=== PATIENT | female | born 1930 | race Caucasian/White ===

== ENCOUNTER → 2017-03-07 | Outpatient (CLI) | payer MEDICARE, OTHER ==
[~2017-03-07] MED LIST: ATOXIMETIN-B1 CAP PO; BACTRIM DS 8001 TA1 PO; CALCIUM 600 W/V1 TAB PO; CALCIUM 600600 M1 PO; COUMADIN5 M2 PO; CYMBALTA60 MG PO; DEXILANT60 MG PO; DIGITEK0.125 MG PO; DOXYCYLINE50 MG PO; KLOR-CON M2020 MEQ PO; KLOR-CON20 MEQ PO; LANOXIN0.125 MG PO; LEVAQUIN750 MG PO; LISINOPRIL AND1 TA1 PO; LISINOPRIL/HCTZ1 TA2 PO; LISINOPRIL20 MG PO; LYRICA75 MG PO; OMEPRAZOLE40 MG PO; THE MEDICINE S400 IU PO; TOPAMAX25 MG PO; TYLENOL W/CODEI1 TA2 PO; VERELAN SR 240240 MG PO; VICODIN1 TAB PO; VITAMIN D31000 I1 PO
== END | disposition home or self-care (01) ==
LOC: CT 03-01 11:00
DX: N28.1 Cyst of kidney, acquired (principal); E27.9 Disorder of adrenal gland, unspecified; Z90.49 Acquired absence of other specified parts of digestive tract; Z90.710 Acquired absence of both cervix and uterus; Z98.890 Other specified postprocedural states

== ENCOUNTER 2017-09-19 11:33 | Inpatient (IN) | payer MEDICARE, OTHER ==
[~2017-09-19] VITALS: Ht 152.4 cm; Wt 95.3 kg
--- NOTE | ~2017-09-19 | PR ---
[place], [place] PROGRESS NOTE [facility]: [id number] UNIT #: [id number] ROOM: 407 DOCTOR: BHAVNA VERMA MD BIRTHDATE: [birth year] DOS: 09/20/2017 SUBJECTIVE: The patient was seen today at her bedside at the [address] for followup of epigastric pain. She is an 87-year-old woman who has a long history of atrial fibrillation. She denies any history of coronary disease. She states that she has had epigastric pain for some time, but states that she has never been told that she has had a heart attack. She does note that it has been quite a while since she has had any heart testing. Since her admission, her troponin levels have been unremarkable. She did have an echocardiogram yesterday, 09/19/2017. I reviewed that; it showed normal left ventricular size with moderate concentric left ventricular hypertrophy, normal left ventricular segmental wall motion and normal systolic function, estimated ejection fraction was at least 70%. She has stage II diastolic relaxation abnormalities. The left atrium appeared severely enlarged. There was mild mitral insufficiency and mild tricuspid insufficiency, but no definite pulmonary hypertension. She does have a small pericardial effusion, which appears to have no hemodynamic consequences. PHYSICAL EXAMINATION: VITAL SIGNS: Today, her pulse is 60 and irregularly irregular. Blood pressure is 153/60. She is afebrile. NECK: Supple. She has no jugular distention. Carotids are full without bruits. LUNGS: Respirations are unlabored. Her chest is clear to auscultation and percussion. HEART: Has an irregularly irregular rhythm without murmurs or gallops. The PMI is not displaced. There is no precordial heave, lift or thrill. ABDOMEN: Soft and normally active. She has no epigastric tenderness or rebound. There are no masses. EXTREMITIES: Showed no edema. Peripheral pulses are easily palpated in the feet. Her monitor does show atrial fibrillation with a controlled ventricular response. IMPRESSION: 1. Epigastric pain. This appears to be noncardiac in origin on clinical grounds. 2. Normal troponin level despite prolonged periods of chest discomfort. 3. Hypertension, which appears to be fairly poorly controlled. The patient does have moderate concentric left ventricular hypertrophy on echocardiography. 4. Atrial fibrillation, which is permanent and appears to be well controlled. 5. Gastroesophageal reflux and hiatal hernia. 6. Hypothyroidism. 7. Obesity. 8. Neuropathy. PLAN: The patient is being considered for further GI evaluation. If she is still in the hospital in the next few days, we might consider a pharmacologic stress test to complete her cardiac workup, but at this point I have a very low [place], [place] PROGRESS NOTE NAME: FRANKLIN NORWOOD UNIT #: [id number] ROOM: 407 DOCTOR: BAYRON ARMIJO,BHAVNA BIRTHDATE: [birth year] suspicion that her heart is the cause of her symptoms. I thank the hospitalist physicians for asking our advice regarding her care. BHAVNA VERMA MD CM:PNTRANS [id number] BHAVNA VERMA MD 09/20/17 564 interface
[2017-09-19 11:33] VITALS: BP 191/88
[2017-09-19] MEDS ORDERED: VERAPAMIL HCL120 M1 PO (12:09)
[2017-09-19] MEDS ORDERED: FEOSOL325 MG PO (12:09)
[2017-09-19] MEDS ORDERED: ASPIRIN81 M1 PO (12:10)
[2017-09-19] MEDS ORDERED: LISINOPRIL40 MG PO (12:10)
[2017-09-19] MEDS ORDERED: POTASSIUM99 M5 PO (12:11)
[2017-09-19] MEDS ORDERED: VITAMIN D31000 UNI1 PO (12:12)
[2017-09-19 12:13] LABS: BASO % 0.4 % (0.0-1.0); EOS # 0.2 10*3/uL (0.0-0.4); EOS % 1.8 % (1.0-4.0); HEMATOCRIT 35.2 % (37.0-47.0); HEMOGLOBIN 10.7 g/dl (12.0-16.0); LYMPH # 1.2 10*3/uL (1.3-4.4); LYMPH % 12.7 % (27.0-41.0); MEAN CELL VOLUME 94.4 fl (81.0-99.0); MEAN CORPUSCULAR HGB 28.7 pg (27.0-31.0); MEAN CORPUSCULAR HGB CONC 30.4 g/dl (33.0-37.0); MEAN PLATELET VOLUME 10.6 fl (9.6-12.3); MONO # 0.8 10*3/uL (0.1-1.0); MONO % 9.1 % (3.0-9.0); NEUT # 6.9 10*3/uL (2.3-7.9); NEUT % 75.5 % (47.0-73.0); PLATELET COUNT AUTOMATED 257 10*3/uL (130-400); RED BLOOD COUNT 3.73 10*6/uL (4.10-5.10); RED CELL DISTRI WIDTH 15.8 % (0-14.5); WHITE BLOOD COUNT 9.1 10*3/uL (4.8-10.8)
[2017-09-19] MEDS ORDERED: B12,B-12,B 12500 MC1 PO (12:13)
[2017-09-19 12:23] LABS: ACT PARTIAL THROMBO TIME 24.5 SECONDS (20.8-31.5)
[2017-09-19 12:29] LABS: ALBUMIN 3.4 gm/dl (3.1-4.5); CREATININE 1.23 mg/dL (0.55-1.02); TOTAL PROTEIN 6.8 gm/dL (6.4-8.2)
[2017-09-19 12:30] LABS: TROPONIN I 0.015 ng/ml (<0.045)
[2017-09-19 12:49] VITALS: BP 159/71
[2017-09-19 14:55] VITALS: BP 178/82
[2017-09-19 15:00] VITALS: BP 170/80
[2017-09-19] MEDS ORDERED: LEVOTHYROXINE50 MCG PO (15:02)
[2017-09-19] MEDS ORDERED: COLACE100 MG PO (15:03)
[2017-09-19] MEDS ORDERED: PRESERVISION A1 EAC1 PO (15:04)
[2017-09-19] MEDS ORDERED: HAIR, SKIN & N1 EACH PO (15:05)
[2017-09-19] MEDS ORDERED: LYRICA75 M1 PO (15:30)
[2017-09-19] MEDS ORDERED: CYMBALTA30 MG PO (15:30)
[2017-09-19 16:00] VITALS: BP 170/80
[2017-09-19 20:00] VITALS: BP 156/73
[2017-09-20] VITALS: BP 150/69
[2017-09-20 06:19] LABS: BASO % 0.4 % (0.0-1.0); EOS # 0.2 10*3/uL (0.0-0.4); EOS % 2.4 % (1.0-4.0); HEMOGLOBIN 9.5 g/dl (12.0-16.0); LYMPH # 1.2 10*3/uL (1.3-4.4); LYMPH % 16.2 % (27.0-41.0); MEAN CELL VOLUME 95.5 fl (81.0-99.0); MEAN CORPUSCULAR HGB 28.4 pg (27.0-31.0); MEAN CORPUSCULAR HGB CONC 29.7 g/dl (33.0-37.0); MEAN PLATELET VOLUME 11.4 fl (9.6-12.3); MONO # 0.8 10*3/uL (0.1-1.0); MONO % 10.8 % (3.0-9.0); NEUT % 69.8 % (47.0-73.0); PLATELET COUNT AUTOMATED 218 10*3/uL (130-400); RED BLOOD COUNT 3.35 10*6/uL (4.10-5.10); RED CELL DISTRI WIDTH 15.7 % (0-14.5); WHITE BLOOD COUNT 7.2 10*3/uL (4.8-10.8)
[2017-09-20 06:37] LABS: ALBUMIN 2.8 gm/dl (3.1-4.5); BUN 17 mg/dl (7-24); CHLORIDE 107 mmol/L (98-107); CHOLESTEROL 109 mg/dL (<200); CREATININE 0.93 mg/dL (0.55-1.02); PHOSPHOROUS 3.3 mg/dL (2.5-4.9); POTASSIUM 3.6 mmol/L (3.5-5.1); SGOT/AST 15 IU/L (3-35); SGPT/ALT 18 U/L (12-78); SODIUM 143 mmol/L (136-145); TRIGLYCERIDES 62 mg/dl (<150); VLDL CHOLESTEROL 12 mg/dL (6-40)
[2017-09-20 06:44] LABS: ALKALINE PHOSPHATASE 71 U/L (45-117); FREE T4 1.08 ng/dl (0.76-1.46); HDL CHOLESTEROL 49 mg/dl (40-60); LDL CHOLESTEROL 48 mg/dL (9-159); TOTAL PROTEIN 5.7 gm/dL (6.4-8.2)
[2017-09-20 07:12] LABS: VITAMIN D, 25-HYDROXY 34.7 ng/mL (30-100)
[2017-09-20 08:00] VITALS: BP 148/76
[2017-09-20 12:00] VITALS: BP 153/60
[2017-09-20 16:00] VITALS: BP 150/62
[2017-09-20 20:00] VITALS: BP 133/50
[2017-09-21] VITALS: BP 151/62
[2017-09-21 06:54] LABS: BASO # 0.1 10*3/uL (0.0-0.1); BASO % 0.6 % (0.0-1.0); EOS # 0.2 10*3/uL (0.0-0.4); EOS % 2.4 % (1.0-4.0); HEMATOCRIT 34.3 % (37.0-47.0); HEMOGLOBIN 10.1 g/dl (12.0-16.0); LYMPH # 1.2 10*3/uL (1.3-4.4); LYMPH % 13.6 % (27.0-41.0); MEAN CELL VOLUME 96.3 fl (81.0-99.0); MEAN CORPUSCULAR HGB 28.4 pg (27.0-31.0); MEAN CORPUSCULAR HGB CONC 29.4 g/dl (33.0-37.0); MEAN PLATELET VOLUME 11.4 fl (9.6-12.3); MONO # 0.8 10*3/uL (0.1-1.0); MONO % 9.6 % (3.0-9.0); NEUT # 6.4 10*3/uL (2.3-7.9); NEUT % 73.5 % (47.0-73.0); PLATELET COUNT AUTOMATED 235 10*3/uL (130-400); RED BLOOD COUNT 3.56 10*6/uL (4.10-5.10); RED CELL DISTRI WIDTH 15.7 % (0-14.5); WHITE BLOOD COUNT 8.7 10*3/uL (4.8-10.8)
[2017-09-21 07:32] LABS: CHLORIDE 107 mmol/L (98-107); POTASSIUM 3.9 mmol/L (3.5-5.1); SODIUM 143 mmol/L (136-145)
[2017-09-21 07:50] LABS: BUN 18 mg/dl (7-24); CREATININE 0.99 mg/dL (0.55-1.02)
[2017-09-21 08:00] VITALS: BP 146/66
[2017-09-21 12:00] VITALS: BP 156/67
[2017-09-21 15:52] VITALS: BP 102/46
[2017-09-21 20:00] VITALS: BP 108/55
[2017-09-22] VITALS: BP 110/55
[2017-09-22 08:00] VITALS: BP 131/71
[2017-09-22 11:58] VITALS: BP 131/71
[2017-09-22] MEDS ORDERED: VITAMIN D31000 UNI1 PO (12:34)
[2017-09-22] MEDS ORDERED: VERAPAMIL HCL120 M1 PO (12:34)
[2017-09-22] MEDS ORDERED: LOSARTAN POTASS50 M1 PO (12:34)
[2017-09-22] MEDS ORDERED: THERA TABLET400 MCG PO (12:34)
[2017-09-22] MEDS ORDERED: FEOSOL325 MG PO (12:34)
[2017-09-22] MEDS ORDERED: CYMBALTA30 MG PO (12:34)
[2017-09-22] MEDS ORDERED: POTASSIUM99 M5 PO (12:34)
[2017-09-22] MEDS ORDERED: LORAZEPAM0.5 MG PO (12:34)
[2017-09-22] MEDS ORDERED: OMEPRAZOLE40 MG PO (12:34)
[2017-09-22] MEDS ORDERED: ASPIRIN81 M1 PO (12:34)
[2017-09-22] MEDS ORDERED: LEVOTHYROXINE50 MCG PO (12:34)
[2017-09-22] MEDS ORDERED: LYRICA75 M1 PO (12:34)
[2017-09-22] MEDS ORDERED: COLACE100 MG PO (12:34)
== END 2017-09-22 15:48 | disposition home or self-care (01) | DRG 880 ==
LOC: ED 11:33 → 4E 13:33 → EDHOLD 13:33 → 4E 13:47
PROVIDERS: Internal Medicine; Nurse Practitioner Family; Registered Nurse
DX: F41.9 Anxiety disorder, unspecified (principal); G62.9 Polyneuropathy, unspecified; I31.3 Pericardial effusion (noninflammatory); I08.1 Rheumatic disorders of both mitral and tricuspid valves; Z68.41 Body mass index [BMI] 40.0-44.9, adult; I48.1 Persistent atrial fibrillation; D50.9 Iron deficiency anemia, unspecified; E03.9 Hypothyroidism, unspecified; I13.10 Hypertensive heart and chronic kidney disease without heart failure, with stage 1 through stage 4 chronic kidney disease, or unspecified chronic kidney disease; N18.3 Chronic kidney disease, stage 3 (moderate); K21.9 Gastro-esophageal reflux disease without esophagitis; K44.9 Diaphragmatic hernia without obstruction or gangrene; E66.09 Other obesity due to excess calories; Z96.653 Presence of artificial knee joint, bilateral; R10.13 Epigastric pain; F41.0 Panic disorder [episodic paroxysmal anxiety]; Z66 Do not resuscitate; Z51.5 Encounter for palliative care; Z90.710 Acquired absence of both cervix and uterus; Z90.89 Acquired absence of other organs; Z90.49 Acquired absence of other specified parts of digestive tract; Z98.49 Cataract extraction status, unspecified eye; Z82.49 Family history of ischemic heart disease and other diseases of the circulatory system; Z83.3 Family history of diabetes mellitus; Z83.6 Family history of other diseases of the respiratory system; Z79.82 Long term (current) use of aspirin; Z79.899 Other long term (current) drug therapy; Z87.11 Personal history of peptic ulcer disease

== ENCOUNTER → 2017-10-07 | Outpatient (CLI) | payer MEDICARE, OTHER ==
[~2017-10-07] MED LIST changes: +ASPIRIN81 M1 PO; +B12,B-12,B 12500 MC1 PO; +COLACE100 MG PO; +CYMBALTA30 MG PO; +FEOSOL325 MG PO; +HAIR, SKIN & N1 EACH PO; +LEVOTHYROXINE50 MCG PO; +LISINOPRIL40 MG PO; +LORAZEPAM0.5 MG PO; +LOSARTAN POTASS50 M1 PO; +LYRICA75 M1 PO; +POTASSIUM99 M5 PO; +PRESERVISION A1 EAC1 PO; +THERA TABLET400 MCG PO; +VERAPAMIL HCL120 M1 PO; +VITAMIN D31000 UNI1 PO
== END | disposition home or self-care (01) ==
LOC: RESCLI 03:26
DX: Z09 Encounter for follow-up examination after completed treatment for conditions other than malignant neoplasm (principal); I48.2 Chronic atrial fibrillation; K21.9 Gastro-esophageal reflux disease without esophagitis; K44.9 Diaphragmatic hernia without obstruction or gangrene; I10 Essential (primary) hypertension; E03.9 Hypothyroidism, unspecified; G62.9 Polyneuropathy, unspecified; D50.9 Iron deficiency anemia, unspecified; E66.01 Morbid (severe) obesity due to excess calories; E43 Unspecified severe protein-calorie malnutrition; Z68.41 Body mass index [BMI] 40.0-44.9, adult

== ENCOUNTER 2017-10-31 18:27 | Inpatient (IN) | payer MEDICARE, OTHER ==
[~2017-10-31] VITALS: Ht 152.4 cm; Wt 95.3 kg
--- NOTE | ~2017-10-31 | O ---
[place], [place] OPERATIVE NOTE NAME: FRANKLIN NORWOOD UNIT #: [id number] ROOM: 408 DOCTOR: HERO MORALES MD BIRTHDATE: [birth year] DOS: 11/03/2017 GASTROENDOSCOPIC REPORT INDICATIONS: The patient has presented with anemia, multi-medical issues that are being addressed as well as epigastric distress, periodic rectal bleed. PROCEDURE: Today's procedure part of investigation is panendoscopy and colonoscopy. PREMEDICATION: Versed and Diprivan. SCOPE: Olympus forward-viewing gastroscope Q10 video. REPORT: After putting the patient in left lateral position and application of lubricant to the scope, the scope was introduced. Thereafter, under direct visualization, advanced through the length of the esophagus without difficulty. Small hiatal hernia was noticed. Gastric pouch was entered. Gastritis seen. Antral biopsy obtained. Duodenal bulb, second and third part within normal limits. The patient was gradually extubated, tolerated procedure well. IMPRESSION: Small hiatal hernia, gastritis, status post biopsy. PLAN AND DISCUSSION: Omeprazole 20 mg 1 every day, would suffice management of upper GI findings. PLAN AND DISCUSSION: I am going to proceed with colonoscopy. INDICATIONS: The patient has presented with rectal bleed. PROCEDURE: Today's procedure part of investigation is colonoscopy. PREMEDICATION: Versed and Diprivan. SCOPE: Olympus folding colonoscope 10L video. REPORT: After putting the patient in left lateral position and application of lubricant to rectal pouch and digital examination, scope was introduced; thereafter, under direct visualization, I advanced the length of colon without difficulty. Tortuosity and redundancy of colon was noticed. Base of the cecum explored, appendiceal orifice identified, and ileocecal valve was defined, photographed. The scope was gradually withdrawn from ascending, transverse, descending colon. GI reflection of the scope in the rectum demonstrates benign anatomy. Air was suctioned out. The patient was extubated, tolerated procedure well. IMPRESSION: Diverticulosis, redundant colon, tortuous colon. PLAN AND DISCUSSION: Regular diet and supportive therapy of periodic rectal [place], [place] OPERATIVE NOTE NAME: FRANKLIN NORWOOD UNIT #: [id number] ROOM: 408 DOCTOR: HERO MORALES MD BIRTHDATE: [birth year] bleed with a hemorrhoid Preparation-H suppositories 1 p.r.n. HERO MORALES MD CM:OPRECORD:OPERATIVE NOTE [id number] HERO MORALES MD 11/03/17 1426 interface
--- NOTE | ~2017-10-31 | CON ---
[place], [place] REPORT OF CONSULTATION NAME: FRANKLIN NORWOOD UNIT #: [id number] ROOM: 408 DOCTOR: ANDREW ARMIJOSHENALORENZA BIRTHDATE: [birth year] DOS: 11/03/2017 GASTROENDOSCOPIC CONSULTATION HISTORY OF PRESENT ILLNESS: An 87-year-old patient who presented with anemia, epigastric distress, nonspecific abdominal pain, guaiac positivity, undergoing investigation. The patient had lab results, urinalysis 1+ bacteria. Lactic acid normal. CBC: H and H of 8 and 30. Comprehensive metabolic panel, electrolyte balance, liver function test normal. CT scan of the abdomen and pelvis, no acute inflammatory process, inferior anterior abdominal wall hernia, right midline, the same as prior herniation of the past. CBC differential slight drop in H and H was again noticed to 7.9 and 27.9, hemoglobin A1c less than 3.5. CBC and labs and records were reassessed, transfusion to 9.7 and 33.8. PAST MEDICAL HISTORY: Associated with gastroesophageal reflux, hiatal hernia, hypertension, hypothyroidism, anemia, iron deficiency type, and chronic renal insufficiency. PAST SURGICAL HISTORY: Knee prosthesis, hysterectomy, appendectomy, cataract, cholecystectomy, endoscopies, and kyphoplasty. SOCIAL HISTORY: Nonsmoker, nonalcohol consumer. FAMILY HISTORY: Noncontributory. ALLERGIES: To no known medications. MEDICATIONS: Medication list has been reviewed. The patient has been on aspirin and iron supplementation and PPI therapy and others. REVIEW OF SYSTEMS: HEENT: Denies double vision, blurred vision. RESPIRATORY: Denies acute shortness of breath. CARDIOVASCULAR: Denies acute chest pain. DIGESTIVE SYSTEM: Epigastric pain, nonspecific, however. No gross bleeding. PHYSICAL EXAMINATION: VITAL SIGNS: Stable. HEENT: Head normocephalic, nontraumatic. Mouth and buccal mucosa benign. NECK: Supple. No thyromegaly, no cervical lymphadenopathy. CHEST: Symmetric anatomy, decreased air entry in general. No rhonchi, no wheezes. HEART: Normal sinus rhythm, no gallop, no murmur. ABDOMEN: Soft. No hepato-organomegaly. Bowel sounds present. No pulsatile mass. Obese. Scars of surgery on abdomen was noticed. No pulsatile mass. EXTREMITIES: 1+ pedal edema. NEUROLOGIC: Appears to be fully alert, oriented to time, place, person. IMPRESSION: Iron deficiency anemia on aspirin and iron supplementation. [place], [place] REPORT OF CONSULTATION NAME: FRANKLIN NORWOOD UNIT #: [id number] ROOM: 408 DOCTOR: HERO MORALES MD BIRTHDATE: [birth year] Hypokalemia, status post therapy, obesity, bleeding hemorrhoids, atrial fibrillation, history of gastroesophageal reflux, history of hiatal hernia, and renal insufficiency all has been recognized. OTHER ADJUNCTIVE DIAGNOSES: As outlined above. PLAN AND DISCUSSION: We are going to proceed with the EGD and colonoscopic, I have already done. Thank you very much indeed. HERO MORALES MD CM:CONSTR:REPORT OF CONSULTATION 1307 11/04/17 0023 interface
[2017-10-31 18:38] VITALS: BP 156/84
[2017-10-31 18:58] LABS: BILIRUBIN NEGATIVE (NEGATIVE); BLOOD NEGATIVE (NEGATIVE); CLARITY SL CLOUDY (CLEAR); COLOR YELLOW (YELLOW); GLUCOSE NEGATIVE (NEGATIVE); KETONE NEGATIVE (NEGATIVE); LEUKO ESTERASE 2+ (NEGATIVE); NITRITE NEGATIVE (NEGATIVE); PH 5.5 (5.0-9.0); UROBILINOGEN 0.2 E.U./dl (0.2-1.0)
[2017-10-31 19:07] LABS: BACTERIA 1+
[2017-10-31 19:08] LABS: EPITHELIAL CELLS 31-40; WBC 51-100 wbc/hpf (0-5)
[2017-10-31 19:34] VITALS: BP 144/82
[2017-10-31 19:37] LABS: BASO % 0.4 % (0.0-1.0); EOS # 0.1 10*3/uL (0.0-0.4); EOS % 1.5 % (1.0-4.0); HEMATOCRIT 30.1 % (37.0-47.0); HEMOGLOBIN 8.9 g/dl (12.0-16.0); LYMPH # 1.1 10*3/uL (1.3-4.4); LYMPH % 12.9 % (27.0-41.0); MEAN CELL VOLUME 98.7 fl (81.0-99.0); MEAN CORPUSCULAR HGB 29.2 pg (27.0-31.0); MEAN CORPUSCULAR HGB CONC 29.6 g/dl (33.0-37.0); MONO # 0.8 10*3/uL (0.1-1.0); MONO % 9.2 % (3.0-9.0); NEUT # 6.2 10*3/uL (2.3-7.9); NEUT % 75.5 % (47.0-73.0); PLATELET COUNT AUTOMATED 279 10*3/uL (130-400); RED BLOOD COUNT 3.05 10*6/uL (4.10-5.10); RED CELL DISTRI WIDTH 14.9 % (0-14.5); WHITE BLOOD COUNT 8.2 10*3/uL (4.8-10.8)
[2017-10-31 19:52] LABS: ALBUMIN 3.1 gm/dl (3.1-4.5); ALKALINE PHOSPHATASE 77 U/L (45-117); BUN 13 mg/dl (7-24); CHLORIDE 108 mmol/L (98-107); CREATININE 0.91 mg/dL (0.55-1.02); LIPASE 124 U/L (73-393); POTASSIUM 3.7 mmol/L (3.5-5.1); SGOT/AST 14 IU/L (3-35); SGPT/ALT 17 U/L (12-78); SODIUM 143 mmol/L (136-145); TOTAL PROTEIN 6.2 gm/dL (6.4-8.2)
[2017-10-31 20:35] VITALS: BP 132/80
[2017-10-31 21:32] VITALS: BP 128/80
[2017-10-31 23:40] VITALS: BP 157/84
[2017-11-01] MEDS ORDERED: DOXEPIN50 MG PO (00:14)
[2017-11-01] MEDS ORDERED: LYRICA50 M1 PO (00:15)
[2017-11-01 07:19] LABS: BASO % 0.4 % (0.0-1.0); EOS # 0.2 10*3/uL (0.0-0.4); EOS % 2.7 % (1.0-4.0); HEMATOCRIT 27.9 % (37.0-47.0); HEMOGLOBIN 7.9 g/dl (12.0-16.0); LYMPH # 1.4 10*3/uL (1.3-4.4); LYMPH % 20.2 % (27.0-41.0); MEAN CELL VOLUME 99.6 fl (81.0-99.0); MEAN CORPUSCULAR HGB 28.2 pg (27.0-31.0); MEAN CORPUSCULAR HGB CONC 28.3 g/dl (33.0-37.0); MONO # 0.7 10*3/uL (0.1-1.0); NEUT # 4.4 10*3/uL (2.3-7.9); NEUT % 65.4 % (47.0-73.0); PLATELET COUNT AUTOMATED 234 10*3/uL (130-400); RED CELL DISTRI WIDTH 14.7 % (0-14.5); WHITE BLOOD COUNT 6.7 10*3/uL (4.8-10.8)
[2017-11-01 07:48] LABS: BUN 11 mg/dl (7-24); CHLORIDE 109 mmol/L (98-107); CHOLESTEROL 106 mg/dL (<200); CREATININE 0.91 mg/dL (0.55-1.02); FREE T4 1.11 ng/dl (0.76-1.46); HDL CHOLESTEROL 42 mg/dl (40-60); IRON 21 ug/dL (50-170); LDL CHOLESTEROL 53 mg/dL (9-159); PHOSPHOROUS 3.2 mg/dL (2.5-4.9); POTASSIUM 3.8 mmol/L (3.5-5.1); SODIUM 145 mmol/L (136-145); TOTAL IRON BINDING CAPACITY 282 ug/dl (250-450); TRIGLYCERIDES 54 mg/dl (<150); VLDL CHOLESTEROL 11 mg/dL (6-40)
[2017-11-01 08:00] VITALS: BP 153/67
[2017-11-01 08:29] LABS: FERRITIN 24.6 ng/mL (10.0-291.0); VITAMIN D, 25-HYDROXY 27.7 ng/mL (30-100)
[2017-11-01 12:00] VITALS: BP 148/63
[2017-11-01 16:00] VITALS: BP 155/72
[2017-11-01 20:00] VITALS: BP 152/50
[2017-11-02] VITALS: BP 130/63
[2017-11-02 05:53] LABS: BASO % 0.7 % (0.0-1.0); EOS # 0.2 10*3/uL (0.0-0.4); EOS % 2.8 % (1.0-4.0); HEMATOCRIT 29.5 % (37.0-47.0); HEMOGLOBIN 8.5 g/dl (12.0-16.0); LYMPH # 1.1 10*3/uL (1.3-4.4); LYMPH % 18.1 % (27.0-41.0); MEAN CELL VOLUME 100.3 fl (81.0-99.0); MEAN CORPUSCULAR HGB 28.9 pg (27.0-31.0); MEAN CORPUSCULAR HGB CONC 28.8 g/dl (33.0-37.0); MEAN PLATELET VOLUME 11.9 fl (9.6-12.3); MONO # 0.7 10*3/uL (0.1-1.0); MONO % 11.8 % (3.0-9.0); NEUT % 66.3 % (47.0-73.0); PLATELET COUNT AUTOMATED 192 10*3/uL (130-400); RED BLOOD COUNT 2.94 10*6/uL (4.10-5.10); RED CELL DISTRI WIDTH 14.6 % (0-14.5)
[2017-11-02 06:03] LABS: BUN 9 mg/dl (7-24); CHLORIDE 111 mmol/L (98-107); CREATININE 0.89 mg/dL (0.55-1.02); POTASSIUM 3.6 mmol/L (3.5-5.1); SODIUM 145 mmol/L (136-145)
[2017-11-02 08:00] VITALS: BP 145/79
[2017-11-02 12:00] VITALS: BP 119/50
[2017-11-02 16:00] VITALS: BP 120/50
[2017-11-02 20:00] VITALS: BP 160/78
[2017-11-03] VITALS (9 sets, daily range): BP systolic 143–202; BP diastolic 50–91
[2017-11-03 06:42] LABS: BASO % 0.6 % (0.0-1.0); EOS # 0.2 10*3/uL (0.0-0.4); EOS % 3.3 % (1.0-4.0); HEMATOCRIT 33.8 % (37.0-47.0); HEMOGLOBIN 9.7 g/dl (12.0-16.0); LYMPH # 1.2 10*3/uL (1.3-4.4); LYMPH % 18.1 % (27.0-41.0); MEAN CELL VOLUME 99.4 fl (81.0-99.0); MEAN CORPUSCULAR HGB 28.5 pg (27.0-31.0); MEAN CORPUSCULAR HGB CONC 28.7 g/dl (33.0-37.0); MONO # 0.8 10*3/uL (0.1-1.0); MONO % 12.1 % (3.0-9.0); NEUT # 4.4 10*3/uL (2.3-7.9); NEUT % 65.3 % (47.0-73.0); RED CELL DISTRI WIDTH 14.5 % (0-14.5); WHITE BLOOD COUNT 6.7 10*3/uL (4.8-10.8)
[2017-11-03 06:45] LABS: PLATELET COUNT AUTOMATED 292 10*3/uL (130-400)
[2017-11-03 06:52] LABS: BUN 10 mg/dl (7-24); CHLORIDE 108 mmol/L (98-107); CREATININE 1.05 mg/dL (0.55-1.02); POTASSIUM 2.9 mmol/L (3.5-5.1); SODIUM 145 mmol/L (136-145)
[2017-11-04] VITALS: BP 101/70
[2017-11-04 04:00] VITALS: BP 157/54
[2017-11-04 06:19] LABS: BASO % 0.3 % (0.0-1.0); EOS # 0.2 10*3/uL (0.0-0.4); EOS % 2.3 % (1.0-4.0); HEMOGLOBIN 8.7 g/dl (12.0-16.0); LYMPH % 14.7 % (27.0-41.0); MEAN CELL VOLUME 96.7 fl (81.0-99.0); MEAN PLATELET VOLUME 10.6 fl (9.6-12.3); MONO # 0.9 10*3/uL (0.1-1.0); MONO % 12.2 % (3.0-9.0); NEUT # 4.9 10*3/uL (2.3-7.9); NEUT % 70.1 % (47.0-73.0); PLATELET COUNT AUTOMATED 242 10*3/uL (130-400); RED CELL DISTRI WIDTH 14.1 % (0-14.5)
[2017-11-04 06:40] LABS: BUN 7 mg/dl (7-24); CHLORIDE 110 mmol/L (98-107); CREATININE 0.85 mg/dL (0.55-1.02); POTASSIUM 3.3 mmol/L (3.5-5.1); SODIUM 146 mmol/L (136-145)
[2017-11-04 08:00] VITALS: BP 155/62
[2017-11-04 12:00] VITALS: BP 137/58
== END 2017-11-04 15:15 | disposition home or self-care (01) | DRG 394 ==
LOC: ED 18:27 → 4E 22:43 → EDHOLD 22:43 → 4E 23:06
PROVIDERS: Internal Medicine; Physician Assistant; Student in an Organized Health Care Education/Training Program
PROC: 0DJD8ZZ Inspection of Lower Intestinal Tract, Via Natural or Artificial Opening Endoscopic (ICD-10-PCS; principal; 2017-11-03)
PROC: 0DB68ZX Excision of Stomach, Via Natural or Artificial Opening Endoscopic, Diagnostic (ICD-10-PCS; principal; 2017-11-03)
DX: K64.9 Unspecified hemorrhoids (principal); E44.0 Moderate protein-calorie malnutrition; E87.8 Other disorders of electrolyte and fluid balance, not elsewhere classified; G62.9 Polyneuropathy, unspecified; E66.01 Morbid (severe) obesity due to excess calories; D62 Acute posthemorrhagic anemia; I48.0 Paroxysmal atrial fibrillation; D50.9 Iron deficiency anemia, unspecified; N39.0 Urinary tract infection, site not specified; Z68.41 Body mass index [BMI] 40.0-44.9, adult; K29.70 Gastritis, unspecified, without bleeding; K57.30 Diverticulosis of large intestine without perforation or abscess without bleeding; K21.9 Gastro-esophageal reflux disease without esophagitis; K44.9 Diaphragmatic hernia without obstruction or gangrene; R19.5 Other fecal abnormalities; N18.3 Chronic kidney disease, stage 3 (moderate); E03.9 Hypothyroidism, unspecified; I12.9 Hypertensive chronic kidney disease with stage 1 through stage 4 chronic kidney disease, or unspecified chronic kidney disease; D72.810 Lymphocytopenia; Z96.659 Presence of unspecified artificial knee joint; E87.6 Hypokalemia; K63.89 Other specified diseases of intestine; Z90.710 Acquired absence of both cervix and uterus; Z90.49 Acquired absence of other specified parts of digestive tract; Z82.49 Family history of ischemic heart disease and other diseases of the circulatory system; Z83.6 Family history of other diseases of the respiratory system; Z79.82 Long term (current) use of aspirin; Z83.3 Family history of diabetes mellitus; Z79.899 Other long term (current) drug therapy; Z98.49 Cataract extraction status, unspecified eye

== ENCOUNTER 2017-11-19 11:43 | Emergency (ER) | payer MEDICARE, OTHER ==
[~2017-11-19] VITALS: Ht 152.4 cm; Wt 95.7 kg
[~2017-11-19 11:43] MED LIST changes: +DOXEPIN50 MG PO; +LYRICA50 M1 PO
[2017-11-19 12:31] LABS: BASO % 0.4 % (0.0-1.0); EOS # 0.2 10*3/uL (0.0-0.4); HEMATOCRIT 32.6 % (37.0-47.0); HEMOGLOBIN 9.4 g/dl (12.0-16.0); LYMPH # 1.2 10*3/uL (1.3-4.4); LYMPH % 16.3 % (27.0-41.0); MEAN CELL VOLUME 93.7 fl (81.0-99.0); MEAN CORPUSCULAR HGB CONC 28.8 g/dl (33.0-37.0); MEAN PLATELET VOLUME 10.6 fl (9.6-12.3); MONO # 0.7 10*3/uL (0.1-1.0); MONO % 9.6 % (3.0-9.0); NEUT # 5.1 10*3/uL (2.3-7.9); PLATELET COUNT AUTOMATED 270 10*3/uL (130-400); RED BLOOD COUNT 3.48 10*6/uL (4.10-5.10); RED CELL DISTRI WIDTH 15.8 % (0-14.5); WHITE BLOOD COUNT 7.3 10*3/uL (4.8-10.8)
[2017-11-19 12:48] LABS: ALBUMIN 3.3 gm/dl (3.1-4.5); ALKALINE PHOSPHATASE 92 U/L (45-117); BUN 18 mg/dl (7-24); CHLORIDE 115 mmol/L (98-107); CREATININE 1.05 mg/dL (0.55-1.02); LIPASE 162 U/L (73-393); POTASSIUM 3.9 mmol/L (3.5-5.1); SGOT/AST 17 IU/L (3-35); SGPT/ALT 21 U/L (12-78); SODIUM 153 mmol/L (136-145); TOTAL PROTEIN 6.7 gm/dL (6.4-8.2)
[2017-11-19 12:53] LABS: TROPONIN I < 0.015 ng/ml (<0.045)
== END 2017-11-19 14:33 | disposition home or self-care (01) ==
LOC: ED 11:43
PROVIDERS: Physician Assistant
DX: R06.00 Dyspnea, unspecified (principal); Z90.710 Acquired absence of both cervix and uterus; Z98.890 Other specified postprocedural states; Z90.49 Acquired absence of other specified parts of digestive tract; Z79.899 Other long term (current) drug therapy; Z79.82 Long term (current) use of aspirin

== ENCOUNTER → 2018-01-12 | Outpatient (CLI) | payer MEDICARE, OTHER ==
[~2018-01-12] MED LIST changes: +ALAVERT D-12 A1 EACH PO; +HYDR25T PO; +LOSARTAN POTAS100 M1 PO; +VISTARIL25 MG PO
== END | disposition home or self-care (01) ==
LOC: RESCLI 04:58
PROVIDERS: Hospitalist
DX: I10 Essential (primary) hypertension (principal); I48.2 Chronic atrial fibrillation; K21.9 Gastro-esophageal reflux disease without esophagitis; E03.9 Hypothyroidism, unspecified; E66.01 Morbid (severe) obesity due to excess calories; E55.9 Vitamin D deficiency, unspecified; F41.9 Anxiety disorder, unspecified; M19.071 Primary osteoarthritis, right ankle and foot; M19.072 Primary osteoarthritis, left ankle and foot; Z91.09 Other allergy status, other than to drugs and biological substances

== ENCOUNTER 2018-01-21 12:48 | Inpatient (IN) | payer MEDICARE, OTHER ==
[2018-01-21] VITALS (7 sets, daily range): BP systolic 150–204; BP diastolic 59–104
[~2018-01-21] VITALS: Ht 152.4 cm; Wt 90.8 kg
--- NOTE | ~2018-01-21 | PR ---
[place], [place] PROGRESS NOTE NAME: FRANKLIN NORWOOD UNIT #: [id number] ROOM: 404 DOCTOR: BHAVNA VERMA MD BIRTHDATE: [birth year] DOS: 01/23/2018 CARDIOLOGY PROGRESS NOTE SUBJECTIVE: The patient was seen today January 23, 2018, at her bedside with her daughter in attendance. She is an 87-year-old woman who has a history of atrial fibrillation. She presented to the hospital on this occasion with hypertensive urgency. We have been adjusting her medications for better control. It was noted that she did have atrial fibrillation, but was not on anticoagulants. Today, I had a long discussion with the patient and her daughter regarding her risk for stroke. Her CHADS-VASc score is 6 indicating a 10% yearly risk of stroke without anticoagulation. She has therefore agreed to start Eliquis. Her daughter is already on the drug and is receptive to the patient being on it as well. The patient does have a history of undiagnosed source for GI blood loss. She has had multiple endoscopies in the past, but seems to have stabilized recently. I am hoping that she will tolerate the Eliquis without any significant blood loss, but I told the family that this was certainly a possibility. PHYSICAL EXAMINATION: VITAL SIGNS: Today, her pulse is 66 and irregularly irregular. Blood pressure is 158/82. She is afebrile. NECK: Supple. She has no jugular distention. Carotids are full. LUNGS: Respirations are unlabored. Her chest is clear. HEART: Has an irregularly irregular rhythm without murmurs or gallops. ABDOMEN: Benign. EXTREMITIES: Showed 1+ edema bilaterally. IMPRESSION: 1. Permanent atrial fibrillation. 2. Hypertensive emergency. 3. History of gastrointestinal blood loss. Etiology never determined despite multiple attempts. 4. CHADS-VASc score of 6 predicting a 10% yearly risk of stroke without anticoagulation. 5. Degenerative joint disease. PLAN: We will start a thiazide diuretic to better control her blood pressure. I also started her today on Eliquis since she and her daughter have agreed to proceed. We will stop her enoxaparin and aspirin to accommodate this. I thank the hospitalist physicians for asking our advice regarding her care. [place], [place] PROGRESS NOTE NAME: FRANKLIN NORWOOD UNIT #: [id number] ROOM: 404 DOCTOR: BHAVNA VERMA MD BIRTHDATE: [birth year] BHAVNA VERMA MD CM:PNTRANS [id number] BHAVNA VERMA MD 01/24/18 0029 interface
--- NOTE | ~2018-01-21 | CON ---
[place], [place] REPORT OF CONSULTATION NAME: FRANKLIN NORWOOD UNIT #: [id number] ROOM: 404 DOCTOR: BHAVNA VERMA MD BIRTHDATE: [birth year] DOS: 01/22/2018 CARDIOLOGY CONSULTATION REASON FOR CONSULTATION: Atrial fibrillation and hypertension. HISTORY OF PRESENT ILLNESS: The patient is an 87-year-old woman who typically receives her medical care at the [facility] in [place]. Lately, she has been going to the [facility] because of the cost of her medications and convenience. She was noted to have severely elevated blood pressure 2 weeks ago. This has remained elevated. She has noticed some headache and her blood pressure has been 200/100. She was therefore admitted to the hospital for further management. The patient does have a long history of permanent atrial fibrillation. She has not had a clinical stroke, but her CAT scan does show right frontal encephalomalacia consistent with a previous stroke. She has no focal weakness. The patient has had problems with gastrointestinal blood loss. She states that for quite some time a few years ago, she had received transfusions every other week. She has had numerous upper and lower endoscopies as well as a camera endoscopy, but no cause was ever found. Lately, her blood counts have been more stable. She states that she was on warfarin for a time, but did not tolerate it because of blood loss. Lately, she is on aspirin only. PAST MEDICAL HISTORY: Includes: 1. Essential hypertension. 2. Permanent atrial fibrillation. 3. GI blood loss. Cause not discovered despite multiple endoscopies. 4. Hypothyroidism. 5. Severe obesity due to excess calories. 6. Multiple abdominal surgeries including cholecystectomy, hemorrhoidectomy, kidney surgery and appendectomy as well as hysterectomy. 7. Status post right knee replacement and kyphoplasty. CURRENT MEDICATIONS: Include aspirin 81 mg daily, calcium with D 1 tablet b.i.d., vitamin D 1000 units daily, vitamin B12 1000 mcg p.o. daily, docusate 100 mg b.i.d., doxepin 50 mg at bedtime, duloxetine 30 mg daily, ferrous sulfate 325 mg b.i.d., hydroxyzine 25 mg at bedtime, levothyroxine 50 mcg daily, loratadine with pseudoephedrine p.r.n. allergies, losartan 50 mg daily, multivitamin with folic acid daily, omeprazole 20 mg daily, potassium 99 mg daily, Lyrica 50 mg at bedtime, verapamil 120 mg b.i.d. and PreserVision one tablet b.i.d. ALLERGIES: The patient has no known drug allergies. FAMILY HISTORY: Negative for early coronary artery disease. Her father of COPD at age 71 and mother of diabetes at age 76. REVIEW OF SYSTEMS: The patient denies diplopia or loss of vision. She denies [place], [place] REPORT OF CONSULTATION NAME: FRANKLIN NORWOOD UNIT #: [id number] ROOM: [facility] DOCTOR: BHAVNA VERMA MD BIRTHDATE: [birth year] focal weakness, but she does have chronic leg weakness and back pain. She walks with a walker. She does have peripheral neuropathy. She denies fevers, chills, sweats or recent weight gain. She denies nausea or vomiting. She denies palpitations or lightheadedness and denies syncope. She does have occasional chest heaviness when she pushes herself hard, but denies any resting pain or pain with normal activities. She denies hemoptysis or hematemesis. She denies change in bowel or bladder habits. She does have occasional bleeding hemorrhoids. She denies any blood in the urine. She denies any peripheral edema or skin rashes, but she does bruise easily. Remainder of the review of systems is negative except as noted above. SOCIAL HISTORY: The patient is a . She cared for her with Alzheimer's until his 10 years ago and cared for her Down syndrome son until he a few years ago as well. She now lives alone. She does not smoke or consume alcohol. PHYSICAL EXAMINATION: GENERAL: The patient is an elderly white female who is awake, alert and oriented. VITAL SIGNS: Pulse is 57 and irregularly irregular. Blood pressure is 129/59. She is afebrile. She weighs 90.8 kilograms. HEENT: Normocephalic and atraumatic. Extraocular muscles are intact. Sclerae are clear. Pupils equal, round and react to light. The oral mucosa is moist. Tongue is midline. NECK: Supple. She has no jugular distention. Carotids are full. I heard no bruits. She had no neck or supraclavicular masses and no thyromegaly. LUNGS: Respirations are unlabored. Her chest is clear to auscultation and percussion. She has no presacral edema or chest wall tenderness. CARDIOVASCULAR: Heart has an irregularly irregular rhythm without murmurs or gallops. PMI is not displaced. There is no precordial heave, lift or thrill. ABDOMEN: Soft and normally active without masses, organomegaly or bruits. EXTREMITIES: Showed no edema. Peripheral pulses are easily palpated bilaterally. LABORATORY DATA: I reviewed her electrocardiogram, which showed atrial fibrillation with poor precordial R-wave progression and nonspecific T-wave abnormalities. IMPRESSIONS: 1. Permanent atrial fibrillation. 2. History of gastrointestinal blood loss, etiology never determined despite multiple attempts. 3. Essential hypertension, lately out of control. 4. CHADS-VASc score equals 6 predicting a 10% yearly risk of stroke. 5. Degenerative joint disease. PLAN: I did spend quite a bit of time discussing with the patient the risk of stroke in her situation. I think that her risk of stroke is high, but her risk of bleeding is also high. I think it comes down to informing the patient of the options and allowing her to decide. She wants to discuss this with her daughter [place], [place] REPORT OF CONSULTATION NAME: FRANKLIN NORWOOD UNIT #: [id number] ROOM: 404 DOCTOR: BHAVNA VERMA MD BIRTHDATE: [birth year] who helps her with her medications. For now, we will make no changes on her anticoagulation. As regards to her blood pressure, she does take a sinus medication with pseudoephedrine. This should be completely avoided. If need be, we could add a thiazide diuretic to her regimen, but at the present time, her blood pressure does seem to be better. We will continue to observe the patient with her primary physicians and discuss her options with her and her daughter when she is available. I thank the hospitalist physicians for asking our advice regarding her care. BHAVNA VERMA MD CM:CONSTR:REPORT OF CONSULTATION 1236 01/23/18 0029 interface
[~2018-01-21 12:48] MED LIST changes: -ALAVERT D-12 A1 EACH PO; -HYDR25T PO; -LOSARTAN POTAS100 M1 PO; -VISTARIL25 MG PO
[2018-01-21 13:34] LABS: BASO % 0.5 % (0.0-1.0); EOS # 0.2 10*3/uL (0.0-0.4); EOS % 2.6 % (1.0-4.0); HEMATOCRIT 42.4 % (37.0-47.0); HEMOGLOBIN 12.5 g/dl (12.0-16.0); LYMPH # 1.3 10*3/uL (1.3-4.4); MEAN CORPUSCULAR HGB 27.1 pg (27.0-31.0); MEAN CORPUSCULAR HGB CONC 29.5 g/dl (33.0-37.0); MEAN PLATELET VOLUME 11.2 fl (9.6-12.3); MONO # 0.7 10*3/uL (0.1-1.0); MONO % 9.2 % (3.0-9.0); NEUT # 5.6 10*3/uL (2.3-7.9); NEUT % 71.2 % (47.0-73.0); PLATELET COUNT AUTOMATED 228 10*3/uL (130-400); RED BLOOD COUNT 4.61 10*6/uL (4.10-5.10); RED CELL DISTRI WIDTH 15.9 % (0-14.5); WHITE BLOOD COUNT 7.8 10*3/uL (4.8-10.8)
[2018-01-21 13:43] LABS: ACT PARTIAL THROMBO TIME 25.5 SECONDS (20.8-31.5)
[2018-01-21 13:49] LABS: ALBUMIN 3.5 gm/dl (3.1-4.5); ALKALINE PHOSPHATASE 100 U/L (45-117); BUN 16 mg/dl (7-24); CHLORIDE 106 mmol/L (98-107); CREATININE 0.93 mg/dL (0.55-1.02); LIPASE 141 U/L (73-393); POTASSIUM 3.8 mmol/L (3.5-5.1); SGOT/AST 19 IU/L (3-35); SGPT/ALT 26 U/L (12-78); SODIUM 141 mmol/L (136-145); TOTAL PROTEIN 6.9 gm/dL (6.4-8.2)
[2018-01-21 13:50] LABS: TROPONIN I < 0.015 ng/ml (<0.045)
[2018-01-21 14:25] LABS: BILIRUBIN NEGATIVE (NEGATIVE); BLOOD NEGATIVE (NEGATIVE); CLARITY CLEAR (CLEAR); COLOR YELLOW (YELLOW); GLUCOSE NEGATIVE (NEGATIVE); KETONE NEGATIVE (NEGATIVE); LEUKO ESTERASE 1+ (NEGATIVE); NITRITE NEGATIVE (NEGATIVE); SPECIFIC GRAVITY <= 1.005 (1.005-1.030); UROBILINOGEN 0.2 E.U./dl (0.2-1.0)
[2018-01-21 14:39] LABS: BACTERIA TRACE
[2018-01-21 14:40] LABS: WBC 51-100 wbc/hpf (0-5)
[2018-01-21] MEDS ORDERED: VISTARIL25 MG PO (22:03)
[2018-01-22] VITALS: BP 184/100
[2018-01-22 01:20] VITALS: BP 162/88
[2018-01-22] MEDS ORDERED: ALAVERT D-12 A1 EACH PO (04:18)
[2018-01-22 05:55] LABS: BASO % 0.4 % (0.0-1.0); EOS # 0.3 10*3/uL (0.0-0.4); EOS % 3.8 % (1.0-4.0); HEMATOCRIT 38.2 % (37.0-47.0); HEMOGLOBIN 11.2 g/dl (12.0-16.0); LYMPH # 1.6 10*3/uL (1.3-4.4); LYMPH % 22.8 % (27.0-41.0); MEAN CELL VOLUME 92.3 fl (81.0-99.0); MEAN CORPUSCULAR HGB 27.1 pg (27.0-31.0); MEAN CORPUSCULAR HGB CONC 29.3 g/dl (33.0-37.0); MEAN PLATELET VOLUME 11.3 fl (9.6-12.3); MONO # 0.8 10*3/uL (0.1-1.0); MONO % 11.3 % (3.0-9.0); NEUT # 4.2 10*3/uL (2.3-7.9); NEUT % 61.3 % (47.0-73.0); PLATELET COUNT AUTOMATED 212 10*3/uL (130-400); RED BLOOD COUNT 4.14 10*6/uL (4.10-5.10); RED CELL DISTRI WIDTH 15.9 % (0-14.5); WHITE BLOOD COUNT 6.9 10*3/uL (4.8-10.8)
[2018-01-22 06:13] LABS: ALBUMIN 2.9 gm/dl (3.1-4.5); BUN 15 mg/dl (7-24); CHLORIDE 109 mmol/L (98-107); CREATININE 1.05 mg/dL (0.55-1.02); PHOSPHOROUS 3.5 mg/dL (2.5-4.9); POTASSIUM 3.6 mmol/L (3.5-5.1); SGOT/AST 13 IU/L (3-35); SGPT/ALT 23 U/L (12-78); SODIUM 148 mmol/L (136-145); TOTAL PROTEIN 6.2 gm/dL (6.4-8.2)
[2018-01-22 06:14] LABS: ALKALINE PHOSPHATASE 88 U/L (45-117)
[2018-01-22 08:00] VITALS: BP 129/59
[2018-01-22 12:00] VITALS: BP 182/87
[2018-01-22 16:00] VITALS: BP 141/53
[2018-01-22 20:00] VITALS: BP 159/83
[2018-01-23] VITALS: BP 150/74
[2018-01-23 06:44] LABS: BUN 17 mg/dl (7-24); CHLORIDE 107 mmol/L (98-107); CREATININE 1.05 mg/dL (0.55-1.02); POTASSIUM 3.7 mmol/L (3.5-5.1); SODIUM 143 mmol/L (136-145)
[2018-01-23 08:45] VITALS: BP 196/114
[2018-01-23 10:15] VITALS: BP 172/94
[2018-01-23 13:00] VITALS: BP 158/82
[2018-01-23 16:00] VITALS: BP 118/52
[2018-01-23 20:00] VITALS: BP 177/80
[2018-01-24] VITALS: BP 162/85
[2018-01-24 07:00] LABS: BUN 18 mg/dl (7-24); CHLORIDE 108 mmol/L (98-107); CREATININE 1.03 mg/dL (0.55-1.02); POTASSIUM 3.7 mmol/L (3.5-5.1); SODIUM 145 mmol/L (136-145)
[2018-01-24 08:00] VITALS: BP 165/77
[2018-01-24 12:00] VITALS: BP 164/110
[2018-01-24 16:00] VITALS: BP 114/82
[2018-01-24 16:43] VITALS: BP 127/67
[2018-01-24] MEDS ORDERED: LOSARTAN POTAS100 M1 PO (17:14)
[2018-01-24] MEDS ORDERED: HYDR25T PO (17:19)
== END 2018-01-24 17:57 | disposition home or self-care (01) | DRG 690 ==
LOC: ED 12:48 → EDHOLD 15:47 → 4E 15:47
PROVIDERS: Emergency Medicine; Family Medicine; Internal Medicine Cardiovascular Disease; Registered Nurse
DX: N39.0 Urinary tract infection, site not specified (principal); E87.0 Hyperosmolality and hypernatremia; E44.0 Moderate protein-calorie malnutrition; I48.0 Paroxysmal atrial fibrillation; E66.01 Morbid (severe) obesity due to excess calories; G62.9 Polyneuropathy, unspecified; I48.2 Chronic atrial fibrillation; D50.9 Iron deficiency anemia, unspecified; E03.9 Hypothyroidism, unspecified; I16.0 Hypertensive urgency; Z96.651 Presence of right artificial knee joint; M19.90 Unspecified osteoarthritis, unspecified site; I12.9 Hypertensive chronic kidney disease with stage 1 through stage 4 chronic kidney disease, or unspecified chronic kidney disease; K21.9 Gastro-esophageal reflux disease without esophagitis; N18.3 Chronic kidney disease, stage 3 (moderate); K44.9 Diaphragmatic hernia without obstruction or gangrene; Z87.81 Personal history of (healed) traumatic fracture; Z87.440 Personal history of urinary (tract) infections; Z90.710 Acquired absence of both cervix and uterus; Z90.49 Acquired absence of other specified parts of digestive tract; Z98.49 Cataract extraction status, unspecified eye; Z82.49 Family history of ischemic heart disease and other diseases of the circulatory system; Z83.6 Family history of other diseases of the respiratory system; Z83.3 Family history of diabetes mellitus; Z79.82 Long term (current) use of aspirin; Z79.899 Other long term (current) drug therapy

== ENCOUNTER → 2018-01-27 | Outpatient (CLI) | payer MEDICARE, OTHER ==
[~2018-01-27] MED LIST changes: +ALAVERT D-12 A1 EACH PO; +HYDR25T PO; +LOSARTAN POTAS100 M1 PO; +VISTARIL25 MG PO
== END | disposition home or self-care (01) ==
LOC: RESCLI 03:15
DX: Z09 Encounter for follow-up examination after completed treatment for conditions other than malignant neoplasm (principal); I48.2 Chronic atrial fibrillation; I12.9 Hypertensive chronic kidney disease with stage 1 through stage 4 chronic kidney disease, or unspecified chronic kidney disease; N18.3 Chronic kidney disease, stage 3 (moderate); E53.8 Deficiency of other specified B group vitamins; D50.9 Iron deficiency anemia, unspecified; E55.9 Vitamin D deficiency, unspecified; E03.9 Hypothyroidism, unspecified; M79.2 Neuralgia and neuritis, unspecified; K21.9 Gastro-esophageal reflux disease without esophagitis; F41.9 Anxiety disorder, unspecified; K59.00 Constipation, unspecified; J30.9 Allergic rhinitis, unspecified; Z90.49 Acquired absence of other specified parts of digestive tract; Z96.659 Presence of unspecified artificial knee joint; Z79.82 Long term (current) use of aspirin; Z79.899 Other long term (current) drug therapy

== ENCOUNTER → 2018-04-29 | Outpatient (CLI) | payer MEDICARE, OTHER ==
[2018-04-29 12:23] LABS: BASO % 0.4 % (0.0-1.0); EOS # 0.2 10*3/uL (0.0-0.4); EOS % 1.8 % (1.0-4.0); HEMATOCRIT 43.5 % (37.0-47.0); HEMOGLOBIN 13.7 g/dl (12.0-16.0); LYMPH # 1.2 10*3/uL (1.3-4.4); LYMPH % 12.5 % (27.0-41.0); MEAN CORPUSCULAR HGB 30.2 pg (27.0-31.0); MEAN CORPUSCULAR HGB CONC 31.5 g/dl (33.0-37.0); MEAN PLATELET VOLUME 11.4 fl (9.6-12.3); MONO # 0.9 10*3/uL (0.1-1.0); MONO % 9.3 % (3.0-9.0); NEUT # 7.4 10*3/uL (2.3-7.9); NEUT % 75.4 % (47.0-73.0); PLATELET COUNT AUTOMATED 218 10*3/uL (130-400); RED BLOOD COUNT 4.53 10*6/uL (4.10-5.10); RED CELL DISTRI WIDTH 14.5 % (0-14.5); WHITE BLOOD COUNT 9.9 10*3/uL (4.8-10.8)
[2018-04-29 12:47] LABS: ALBUMIN 3.5 gm/dl (3.1-4.5); BUN 21 mg/dl (7-24); CHLORIDE 107 mmol/L (98-107); CREATININE 1.05 mg/dL (0.55-1.02); POTASSIUM 4.2 mmol/L (3.5-5.1); SGOT/AST 20 IU/L (3-35); SGPT/ALT 26 U/L (12-78); SODIUM 142 mmol/L (136-145); TOTAL PROTEIN 7.2 gm/dL (6.4-8.2)
[2018-04-29 12:57] LABS: ALKALINE PHOSPHATASE 107 U/L (45-117)
[2018-04-29 13:26] LABS: VITAMIN D, 25-HYDROXY 15.9 ng/mL (30-100)
== END | disposition home or self-care (01) ==
LOC: RESCLI 10:54
PROVIDERS: Internal Medicine
DX: I12.9 Hypertensive chronic kidney disease with stage 1 through stage 4 chronic kidney disease, or unspecified chronic kidney disease (principal); N18.3 Chronic kidney disease, stage 3 (moderate); I48.2 Chronic atrial fibrillation; K21.9 Gastro-esophageal reflux disease without esophagitis; E03.9 Hypothyroidism, unspecified; G62.9 Polyneuropathy, unspecified; D50.9 Iron deficiency anemia, unspecified; E66.01 Morbid (severe) obesity due to excess calories; F41.9 Anxiety disorder, unspecified; E55.9 Vitamin D deficiency, unspecified; K59.00 Constipation, unspecified; M19.071 Primary osteoarthritis, right ankle and foot; M19.072 Primary osteoarthritis, left ankle and foot; Z91.09 Other allergy status, other than to drugs and biological substances; Z90.710 Acquired absence of both cervix and uterus

== ENCOUNTER → 2018-06-05 | Outpatient (CLI) | payer MEDICARE, OTHER | END | disposition home or self-care (01) | LOC: RESCLI 03:31 | DX: I48.2 Chronic atrial fibrillation (principal); K21.9 Gastro-esophageal reflux disease without esophagitis; I10 Essential (primary) hypertension; E03.9 Hypothyroidism, unspecified; G62.9 Polyneuropathy, unspecified; D50.9 Iron deficiency anemia, unspecified; E66.01 Morbid (severe) obesity due to excess calories; F41.9 Anxiety disorder, unspecified; M19.071 Primary osteoarthritis, right ankle and foot; M19.072 Primary osteoarthritis, left ankle and foot; E55.9 Vitamin D deficiency, unspecified; B35.3 Tinea pedis; K59.00 Constipation, unspecified; Z79.899 Other long term (current) drug therapy; Z68.41 Body mass index [BMI] 40.0-44.9, adult; Z91.09 Other allergy status, other than to drugs and biological substances ==

== ENCOUNTER → 2018-06-24 | Outpatient (CLI) | payer MEDICARE, OTHER | END | disposition home or self-care (01) | LOC: RESCLI 04:29 | DX: Z23 Encounter for immunization (principal); K64.9 Unspecified hemorrhoids; E55.9 Vitamin D deficiency, unspecified; E03.9 Hypothyroidism, unspecified; K59.00 Constipation, unspecified; K21.9 Gastro-esophageal reflux disease without esophagitis; I10 Essential (primary) hypertension; I48.2 Chronic atrial fibrillation; F41.9 Anxiety disorder, unspecified; D50.9 Iron deficiency anemia, unspecified; G62.9 Polyneuropathy, unspecified; Z79.899 Other long term (current) drug therapy; Z88.8 Allergy status to other drugs, medicaments and biological substances ==

== ENCOUNTER → 2018-08-19 | Outpatient (CLI) | payer MEDICARE, OTHER ==
[~2018-08-19] MED LIST changes: +AMLODIPINE BESY10 MG PO; +COREG12.5 M1 PO; +MACROBID100 M1 PO; +NORVASC5 MG PO; +XARELTO20 M1 PO
[2018-08-19 15:58] LABS: BILIRUBIN NEGATIVE (NEGATIVE); BLOOD 3+ (NEGATIVE); CLARITY CLOUDY (CLEAR); COLOR YELLOW (YELLOW); GLUCOSE NEGATIVE (NEGATIVE); KETONE TRACE (NEGATIVE); LEUKO ESTERASE 2+ (NEGATIVE); NITRITE NEGATIVE (NEGATIVE); PH 5.5 (5.0-9.0); UROBILINOGEN 0.2 E.U./dl (0.2-1.0)
[2018-08-19 15:59] LABS: BASO % 0.3 % (0.0-1.0); EOS # 0.1 10*3/uL (0.0-0.4); EOS % 1.6 % (1.0-4.0); HEMATOCRIT 43.2 % (37.0-47.0); HEMOGLOBIN 13.8 g/dl (12.0-16.0); LYMPH # 1.3 10*3/uL (1.3-4.4); LYMPH % 14.4 % (27.0-41.0); MEAN CELL VOLUME 96.2 fl (81.0-99.0); MEAN CORPUSCULAR HGB 30.7 pg (27.0-31.0); MEAN CORPUSCULAR HGB CONC 31.9 g/dl (33.0-37.0); MEAN PLATELET VOLUME 10.7 fl (9.6-12.3); MONO % 10.9 % (3.0-9.0); NEUT # 6.4 10*3/uL (2.3-7.9); NEUT % 71.9 % (47.0-73.0); PLATELET COUNT AUTOMATED 234 10*3/uL (130-400); RED BLOOD COUNT 4.49 10*6/uL (4.10-5.10)
[2018-08-19 16:05] LABS: RBC TNTC rbc/hpf (0-2)
[2018-08-19 16:06] LABS: BACTERIA 2+; EPITHELIAL CELLS 0-2; MUCOUS TRACE; WBC TNTC wbc/hpf (0-5)
== END | disposition home or self-care (01) ==
LOC: RESCLI 15:28
PROVIDERS: Internal Medicine
DX: I13.0 Hypertensive heart and chronic kidney disease with heart failure and stage 1 through stage 4 chronic kidney disease, or unspecified chronic kidney disease (principal); I50.9 Heart failure, unspecified; N18.3 Chronic kidney disease, stage 3 (moderate); N39.0 Urinary tract infection, site not specified; R06.00 Dyspnea, unspecified; I48.2 Chronic atrial fibrillation; E03.9 Hypothyroidism, unspecified; F41.9 Anxiety disorder, unspecified; Z91.09 Other allergy status, other than to drugs and biological substances; Z79.899 Other long term (current) drug therapy; Z90.710 Acquired absence of both cervix and uterus; Z90.49 Acquired absence of other specified parts of digestive tract; Z88.8 Allergy status to other drugs, medicaments and biological substances

== ENCOUNTER → 2018-09-04 | Outpatient (CLI) | payer MEDICARE, OTHER ==
[2018-09-04 14:19] LABS: BILIRUBIN 2+ (NEGATIVE); BLOOD 3+ (NEGATIVE); CLARITY CLOUDY (CLEAR); COLOR BROWN (YELLOW); GLUCOSE NEGATIVE (NEGATIVE); KETONE TRACE (NEGATIVE); LEUKO ESTERASE 2+ (NEGATIVE); NITRITE NEGATIVE (NEGATIVE); SPECIFIC GRAVITY 1.025 (1.005-1.030)
[2018-09-04 14:24] LABS: BASO # 0.1 10*3/uL (0.0-0.1); BASO % 0.7 % (0.0-1.0); EOS # 0.2 10*3/uL (0.0-0.4); EOS % 2.7 % (1.0-4.0); LYMPH # 1.4 10*3/uL (1.3-4.4); LYMPH % 16.4 % (27.0-41.0); MEAN CELL VOLUME 98.1 fl (81.0-99.0); MEAN CORPUSCULAR HGB 29.9 pg (27.0-31.0); MEAN CORPUSCULAR HGB CONC 30.4 g/dl (33.0-37.0); MEAN PLATELET VOLUME 11.2 fl (9.6-12.3); MONO % 11.7 % (3.0-9.0); NEUT # 5.7 10*3/uL (2.3-7.9); NEUT % 67.8 % (47.0-73.0); PLATELET COUNT AUTOMATED 236 10*3/uL (130-400); RED BLOOD COUNT 4.69 10*6/uL (4.10-5.10); RED CELL DISTRI WIDTH 13.2 % (0-14.5); WHITE BLOOD COUNT 8.4 10*3/uL (4.8-10.8)
[2018-09-04 14:35] LABS: BACTERIA 2+; RBC TNTC rbc/hpf (0-2); WBC TNTC wbc/hpf (0-5)
== END | disposition home or self-care (01) ==
LOC: RESCLI 13:25
PROVIDERS: Student in an Organized Health Care Education/Training Program
DX: I13.0 Hypertensive heart and chronic kidney disease with heart failure and stage 1 through stage 4 chronic kidney disease, or unspecified chronic kidney disease (principal); I50.9 Heart failure, unspecified; N18.3 Chronic kidney disease, stage 3 (moderate); N39.0 Urinary tract infection, site not specified; R06.00 Dyspnea, unspecified; I48.2 Chronic atrial fibrillation; E03.9 Hypothyroidism, unspecified; F41.9 Anxiety disorder, unspecified; Z91.09 Other allergy status, other than to drugs and biological substances; Z79.899 Other long term (current) drug therapy; Z90.710 Acquired absence of both cervix and uterus; Z90.49 Acquired absence of other specified parts of digestive tract; Z88.8 Allergy status to other drugs, medicaments and biological substances

== ENCOUNTER → 2018-09-16 | Outpatient (CLI) | payer MEDICARE, OTHER ==
--- NOTE | 2018-09-16 10:44 | NUR ---
INFORMED SIGNED CONSENT OBTAINED FOR LEXISCAN STRESS TEST WITH DR JAVIER. RESTING EKG AFIB HR 68 BP 118/80. PULSE OX 98% LUNGS CLEAR. PT COMPLETED ONE MINUTE OF A LEXISCAN STRESS PROTOCOL WITH PT RECEIVING LEXISCAN 0.4MG IV OVER [address] SECONDS[address] PVCS NOT[address]. NO ST CHANGES SEEN. PT C/O GI UPSET WITH INJECTION. LAST REOVERY HR OF 79 BP 108/68. PT IN STABLE CONDITION, AWAITING NUCLEAR IMAGES AND GETTING ECHO DONE.
== END | disposition home or self-care (01) ==
LOC: CARD 01:20
DX: I08.1 Rheumatic disorders of both mitral and tricuspid valves (principal); I50.9 Heart failure, unspecified

== ENCOUNTER 2018-09-21 11:24 | Emergency (ER) | payer MEDICARE, OTHER ==
[~2018-09-21] VITALS: Ht 152.4 cm; Wt 95.3 kg
--- NOTE | ~2018-09-21 | EKG ---
[place], [place] ELECTROCARDIOGRAM REPORT NAME: FRANKLIN NORWOOD UNIT #: [id number] ROOM: DOCTOR: CURTIS DRAFT REPORT BIRTHDATE: [birth year] [facility] Test Date: 2018-09-21 Test Time: 12:46:05 Pat Name: FRANKLIN NORWOOD Department: Room: Gender: F Program Management Analyst: : [id number] Requested By: ZAHRA CURRY Order Number: [id number] Reading MD: Measurements Intervals Mobile Rate: 76 P: NC: QRS: 1 QRSD: 87 T: 70 QT: 485 QTc: 546 Interpretive Statements Atrial fibrillation Consider inferior infarct Anterior infarct, old Prolonged QT interval Baseline wander in lead(s) II,III,aVR,aVL,aVF,V3,V4 No previous ECG available for comparison CM:EKGRPT:ELECTROCARDIOGRAM REPORT 1246 [id number] ZAHRA ACEVEDO DRAFT REPORT ZAHRA CURRY MD
[~2018-09-21 11:24] MED LIST changes: -AMLODIPINE BESY10 MG PO; -COREG12.5 M1 PO; -MACROBID100 M1 PO; -NORVASC5 MG PO; -XARELTO20 M1 PO
[2018-09-21 12:39] LABS: BASO % 0.4 % (0.0-1.0); EOS # 0.2 10*3/uL (0.0-0.4); EOS % 1.6 % (1.0-4.0); HEMOGLOBIN 13.7 g/dl (12.0-16.0); LYMPH # 1.4 10*3/uL (1.3-4.4); MEAN CELL VOLUME 93.8 fl (81.0-99.0); MEAN CORPUSCULAR HGB 30.6 pg (27.0-31.0); MEAN CORPUSCULAR HGB CONC 32.6 g/dl (33.0-37.0); MEAN PLATELET VOLUME 11.1 fl (9.6-12.3); MONO % 10.5 % (3.0-9.0); NEUT # 6.6 10*3/uL (2.3-7.9); NEUT % 71.5 % (47.0-73.0); PLATELET COUNT AUTOMATED 243 10*3/uL (130-400); RED BLOOD COUNT 4.48 10*6/uL (4.10-5.10); RED CELL DISTRI WIDTH 12.9 % (0-14.5); WHITE BLOOD COUNT 9.3 10*3/uL (4.8-10.8)
[2018-09-21 12:47] LABS: ACT PARTIAL THROMBO TIME 32.7 SECONDS (20.8-31.5); INTERNATIONAL NORM RATIO 1.2 (2.0-3.5)
[2018-09-21 13:02] LABS: ALBUMIN 3.4 gm/dl (3.1-4.5); ALKALINE PHOSPHATASE 99 U/L (45-117); BUN 28 mg/dl (7-24); CHLORIDE 105 mmol/L (98-107); CREATININE 1.21 mg/dL (0.55-1.02); POTASSIUM 3.5 mmol/L (3.5-5.1); SGOT/AST 19 IU/L (3-35); SGPT/ALT 23 U/L (12-78); SODIUM 142 mmol/L (136-145); TOTAL PROTEIN 7.4 gm/dL (6.4-8.2)
[2018-09-21 13:11] LABS: BILIRUBIN NEGATIVE (NEGATIVE); BLOOD 3+ (NEGATIVE); CLARITY CLOUDY (CLEAR); COLOR BROWN (YELLOW); GLUCOSE NEGATIVE (NEGATIVE); KETONE NEGATIVE (NEGATIVE); LEUKO ESTERASE 2+ (NEGATIVE); NITRITE NEGATIVE (NEGATIVE); PH 5.5 (5.0-9.0); SPECIFIC GRAVITY 1.025 (1.005-1.030); UROBILINOGEN 0.2 E.U./dl (0.2-1.0)
[2018-09-21 13:11] LABS: TROPONIN I < 0.015 ng/ml (<0.045)
[2018-09-21 13:26] LABS: BACTERIA 3+; RBC TNTC rbc/hpf (0-2); WBC TNTC wbc/hpf (0-5)
[2018-09-21 13:27] LABS: EPITHELIAL CELLS 15-20
[2018-09-21] MEDS ORDERED: MACROBID100 M1 PO (13:32)
[2018-11-19] MEDS ORDERED: XARELTO20 M1 PO (17:56)
[2018-11-19] MEDS ORDERED: COREG12.5 M1 PO (17:59)
[2018-11-19] MEDS ORDERED: NORVASC5 MG PO (18:01)
[2018-11-22] MEDS ORDERED: LOSARTAN POTASS50 M1 PO (10:59)
[2018-11-22] MEDS ORDERED: AMLODIPINE BESY10 MG PO (10:59)
== END 2018-09-21 13:38 | disposition home or self-care (01) ==
LOC: ED 11:24
PROVIDERS: Emergency Medicine
DX: N39.0 Urinary tract infection, site not specified (principal); R06.02 Shortness of breath; R19.7 Diarrhea, unspecified; I48.91 Unspecified atrial fibrillation; K21.9 Gastro-esophageal reflux disease without esophagitis; E03.9 Hypothyroidism, unspecified; E66.01 Morbid (severe) obesity due to excess calories; G62.9 Polyneuropathy, unspecified; I12.9 Hypertensive chronic kidney disease with stage 1 through stage 4 chronic kidney disease, or unspecified chronic kidney disease; N18.3 Chronic kidney disease, stage 3 (moderate); Z90.710 Acquired absence of both cervix and uterus; Z90.49 Acquired absence of other specified parts of digestive tract

== ENCOUNTER → 2019-02-04 | Outpatient (CLI) | payer MEDICARE, OTHER ==
[~2019-02-04] MED LIST changes: +AMLODIPINE BESY10 MG PO; +COREG12.5 M1 PO; +MACROBID100 M1 PO; +NORVASC5 MG PO; +XARELTO20 M1 PO
[2019-02-04 11:41] LABS: BASO % 0.5 % (0.0-1.0); EOS # 0.1 10*3/uL (0.0-0.4); EOS % 1.7 % (1.0-4.0); HEMATOCRIT 41.2 % (37.0-47.0); HEMOGLOBIN 12.8 g/dl (12.0-16.0); LYMPH # 1.4 10*3/uL (1.3-4.4); LYMPH % 16.9 % (27.0-41.0); MEAN CELL VOLUME 95.2 fl (81.0-99.0); MEAN CORPUSCULAR HGB 29.6 pg (27.0-31.0); MEAN CORPUSCULAR HGB CONC 31.1 g/dl (33.0-37.0); MEAN PLATELET VOLUME 11.7 fl (9.6-12.3); MONO % 11.7 % (3.0-9.0); NEUT # 5.6 10*3/uL (2.3-7.9); NEUT % 68.5 % (47.0-73.0); PLATELET COUNT AUTOMATED 229 10*3/uL (130-400); RED BLOOD COUNT 4.33 10*6/uL (4.10-5.10); RED CELL DISTRI WIDTH 14.2 % (0-14.5); WHITE BLOOD COUNT 8.2 10*3/uL (4.8-10.8)
[2019-02-04 12:07] LABS: ALBUMIN 3.3 gm/dl (3.1-4.5); CREATININE 1.2 mg/dL (0.55-1.02); POTASSIUM 4.3 mmol/L (3.5-5.1); TOTAL PROTEIN 7.3 gm/dL (6.4-8.2)
== END | disposition home or self-care (01) ==
LOC: LAB 10:47
PROVIDERS: Internal Medicine
DX: E55.9 Vitamin D deficiency, unspecified (principal); Z79.899 Other long term (current) drug therapy

== ENCOUNTER → 2019-02-09 | Outpatient (CLI) | payer MEDICARE, OTHER ==
[2019-02-09 12:20] LABS: BILIRUBIN NEGATIVE (NEGATIVE); BLOOD 3+ (NEGATIVE); CLARITY CLOUDY (CLEAR); COLOR YELLOW (YELLOW); GLUCOSE NEGATIVE (NEGATIVE); KETONE NEGATIVE (NEGATIVE); LEUKO ESTERASE 2+ (NEGATIVE); NITRITE NEGATIVE (NEGATIVE); PH 5.5 (5.0-9.0); UROBILINOGEN 0.2 E.U./dl (0.2-1.0)
[2019-02-09 12:53] LABS: BACTERIA 2+; EPITHELIAL CELLS 20-30; RBC 51-100 rbc/hpf (0-2); WBC TNTC wbc/hpf (0-5)
[2019-02-10 11:10] LABS: CREATININE,URINE 104.7 mg/dL (Not Estab.); MICRO ALBUMIN/CRE RATIO 52.4 (0.0-30.0)
== END | disposition home or self-care (01) ==
LOC: RESCLI 02:01
PROVIDERS: Internal Medicine
DX: I12.9 Hypertensive chronic kidney disease with stage 1 through stage 4 chronic kidney disease, or unspecified chronic kidney disease (principal); N18.3 Chronic kidney disease, stage 3 (moderate); E55.9 Vitamin D deficiency, unspecified; F41.9 Anxiety disorder, unspecified; K21.9 Gastro-esophageal reflux disease without esophagitis; D50.9 Iron deficiency anemia, unspecified; K59.00 Constipation, unspecified; G62.9 Polyneuropathy, unspecified; I48.2 Chronic atrial fibrillation; E03.9 Hypothyroidism, unspecified; Z79.899 Other long term (current) drug therapy; Z88.8 Allergy status to other drugs, medicaments and biological substances

== ENCOUNTER → 2019-02-15 | Outpatient (CLI) | payer MEDICARE, OTHER | END | disposition home or self-care (01) | LOC: RAD 12:49 | DX: Z13.820 Encounter for screening for osteoporosis (principal); Z78.0 Asymptomatic menopausal state; Z90.710 Acquired absence of both cervix and uterus ==

== ENCOUNTER → 2019-04-08 | Outpatient (CLI) | payer MEDICARE, OTHER ==
[2019-04-08 11:24] LABS: BILIRUBIN NEGATIVE (NEGATIVE); BLOOD 3+ (NEGATIVE); CLARITY SL CLOUDY (CLEAR); COLOR YELLOW (YELLOW); GLUCOSE NEGATIVE (NEGATIVE); KETONE NEGATIVE (NEGATIVE); LEUKO ESTERASE 2+ (NEGATIVE); NITRITE NEGATIVE (NEGATIVE); SPECIFIC GRAVITY 1.015 (1.005-1.030); UROBILINOGEN 0.2 E.U./dl (0.2-1.0)
[2019-04-08 11:37] LABS: CREATININE 1.13 mg/dL (0.55-1.02); POTASSIUM 3.9 mmol/L (3.5-5.1); RBC TNTC rbc/hpf (0-2); WBC TNTC wbc/hpf (0-5)
== END | disposition home or self-care (01) ==
LOC: RESCLI 01:43
PROVIDERS: Student in an Organized Health Care Education/Training Program
DX: E55.9 Vitamin D deficiency, unspecified (principal); I12.9 Hypertensive chronic kidney disease with stage 1 through stage 4 chronic kidney disease, or unspecified chronic kidney disease; N18.3 Chronic kidney disease, stage 3 (moderate); F41.9 Anxiety disorder, unspecified; K21.9 Gastro-esophageal reflux disease without esophagitis; D50.9 Iron deficiency anemia, unspecified; K59.00 Constipation, unspecified; G62.9 Polyneuropathy, unspecified; I48.2 Chronic atrial fibrillation; E03.9 Hypothyroidism, unspecified; E66.01 Morbid (severe) obesity due to excess calories; F32.9 Major depressive disorder, single episode, unspecified; Z68.41 Body mass index [BMI] 40.0-44.9, adult; Z79.899 Other long term (current) drug therapy

== ENCOUNTER → 2019-05-13 | Outpatient (CLI) | payer MEDICARE, OTHER | END | disposition home or self-care (01) | LOC: RESCLI 01:52 | DX: E55.9 Vitamin D deficiency, unspecified (principal); I12.9 Hypertensive chronic kidney disease with stage 1 through stage 4 chronic kidney disease, or unspecified chronic kidney disease; N18.3 Chronic kidney disease, stage 3 (moderate); F41.9 Anxiety disorder, unspecified; K21.9 Gastro-esophageal reflux disease without esophagitis; D50.9 Iron deficiency anemia, unspecified; K59.00 Constipation, unspecified; G62.9 Polyneuropathy, unspecified; E03.9 Hypothyroidism, unspecified; E66.01 Morbid (severe) obesity due to excess calories; F32.9 Major depressive disorder, single episode, unspecified; I48.21 Permanent atrial fibrillation; Z68.41 Body mass index [BMI] 40.0-44.9, adult; Z79.899 Other long term (current) drug therapy; Z88.8 Allergy status to other drugs, medicaments and biological substances ==

== ENCOUNTER 2019-05-20 17:17 | Emergency (ER) | payer MEDICARE, OTHER ==
[~2019-05-20] VITALS: Ht 152.4 cm; Wt 96.6 kg
[2019-05-20 17:53] LABS: BASO % 0.4 % (0.0-1.0); EOS # 0.3 10*3/uL (0.0-0.4); EOS % 3.2 % (1.0-4.0); HEMATOCRIT 37.5 % (37.0-47.0); HEMOGLOBIN 11.3 g/dl (12.0-16.0); LYMPH # 1.5 10*3/uL (1.3-4.4); LYMPH % 15.8 % (27.0-41.0); MEAN CELL VOLUME 95.7 fl (81.0-99.0); MEAN CORPUSCULAR HGB 28.8 pg (27.0-31.0); MEAN CORPUSCULAR HGB CONC 30.1 g/dl (33.0-37.0); MEAN PLATELET VOLUME 10.8 fl (9.6-12.3); MONO % 10.9 % (3.0-9.0); NEUT # 6.5 10*3/uL (2.3-7.9); NEUT % 69.1 % (47.0-73.0); PLATELET COUNT AUTOMATED 250 10*3/uL (130-400); RED BLOOD COUNT 3.92 10*6/uL (4.10-5.10); RED CELL DISTRI WIDTH 13.4 % (0-14.5); WHITE BLOOD COUNT 9.5 10*3/uL (4.8-10.8)
[2019-05-20 18:02] LABS: INTERNATIONAL NORM RATIO 1.1 (2.0-3.5)
[2019-05-20 18:08] LABS: CREATININE 1.27 mg/dL (0.55-1.02); POTASSIUM 4.2 mmol/L (3.5-5.1); TOTAL PROTEIN 6.7 gm/dL (6.4-8.2)
== END 2019-05-20 20:08 | disposition home or self-care (01) ==
LOC: ED 17:17
PROVIDERS: Nurse Practitioner Family
DX: K62.5 Hemorrhage of anus and rectum (principal); I48.91 Unspecified atrial fibrillation; I10 Essential (primary) hypertension; Z87.442 Personal history of urinary calculi; Z79.899 Other long term (current) drug therapy; Z90.710 Acquired absence of both cervix and uterus; Z90.49 Acquired absence of other specified parts of digestive tract

== ENCOUNTER 2019-07-16 14:28 | Inpatient (IN) | payer MEDICARE, OTHER ==
[2019-07-16] VITALS (12 sets, daily range): BP systolic 91–145; BP diastolic 34–69
[~2019-07-16] VITALS: Ht 152.4 cm; Wt 97.8 kg
[2019-07-16 15:14] LABS: HEMATOCRIT 24.6 % (37.0-47.0); MEAN CELL VOLUME 85.7 fl (81.0-99.0); MEAN PLATELET VOLUME 11.2 fl (9.6-12.3); NUCLEATED RED BLOOD CELL 0.3 % (0.0-0.0); PLATELET COUNT AUTOMATED 235 10*3/uL (130-400); RED BLOOD COUNT 2.87 10*6/uL (4.10-5.10); RED CELL DISTRI WIDTH 16.7 % (0-14.5); WHITE BLOOD COUNT 11.4 10*3/uL (4.8-10.8)
--- NOTE | 2019-07-16 15:18 | NUR ---
HEMOGLOBIN 6.[address] GONZALEZ NOTIFIED
[2019-07-16 15:19] LABS: HEMOGLOBIN 6.9 g/dl (12.0-16.0)
[2019-07-16 15:29] LABS: ACT PARTIAL THROMBO TIME 28.2 SECONDS (20.0-32.1); INTERNATIONAL NORM RATIO 1.1 (2.0-3.5)
[2019-07-16 15:31] LABS: ALKALINE PHOSPHATASE 85 U/L (45-117); BUN 27 mg/dl (7-24); CHLORIDE 107 mmol/L (98-107); CREATININE 1.21 mg/dL (0.55-1.02); POTASSIUM 4.3 mmol/L (3.5-5.1); SGOT/AST 15 IU/L (3-35); SGPT/ALT 20 U/L (12-78); SODIUM 141 mmol/L (136-145); TOTAL PROTEIN 6.7 gm/dL (6.4-8.2)
[2019-07-16 15:32] LABS: TROPONIN I < 0.015 ng/ml (<0.045)
[2019-07-16 15:39] LABS: BILIRUBIN NEGATIVE (NEGATIVE); BLOOD 1+ (NEGATIVE); CLARITY CLEAR (CLEAR); COLOR YELLOW (YELLOW); GLUCOSE NEGATIVE (NEGATIVE); KETONE NEGATIVE (NEGATIVE); LEUKO ESTERASE 1+ (NEGATIVE); NITRITE NEGATIVE (NEGATIVE); UROBILINOGEN 0.2 E.U./dl (0.2-1.0)
[2019-07-16 15:44] LABS: TOTAL CELLS COUNTED 100 #CELLS
[2019-07-16 15:45] LABS: PLATELET SUFFICIENCY NORMAL (NORMAL); POLYCHROMASIA SLIGHT
[2019-07-16 15:47] LABS: LIPASE 151 U/L (73-393)
[2019-07-16 15:49] LABS: RBC 0-2 rbc/hpf (0-2)
[2019-07-16 15:50] LABS: BACTERIA 2+; EPITHELIAL CELLS 16-20; WBC 51-100 wbc/hpf (0-5)
--- NOTE | 2019-07-16 16:15 | NUR ---
FAMILY TOLD ME THAT PT HAS HX OF ANEMIA AND HAD BEEN TAKING IRON TO HELP CONTROL IT BUT WAS TAKEN OFF IRON IN OCTOBER OF THIS YEAR SINCE HER HGB WAS AT A NORMAL RANGE.
--- NOTE | 2019-07-16 17:50 | NUR ---
A 89yr old female, admitted to [facility], under the services of TRUDI Mcarthur DO with a diagnosis of GI BLEED AND ANEMIA. Chief complaint is came to ER c/o weakness and midsternal pain. Patient arrived via stretcher from ER. Monitor applied. Initial assessment completed. Vital signs taken and recorded. See assessment for past medical history, medications and allergies. Patient and/or family oriented to unit. [facility] visitation policy reviewed. Clothing/patient valuable form completed. Patient is pale, warm and dry and fatigued. DAIANA CARVER
[2019-07-16] MEDS ORDERED: HYDROXYZINE HCL25 MG PO (18:20)
[2019-07-16] MEDS ORDERED: CYMBALTA60 MG PO (18:20)
[2019-07-16] MEDS ORDERED: TOPCARE OMEPRAZ20 MG PO (18:21)
--- NOTE | 2019-07-16 18:47 | NUR ---
MEDS RECONCILED WITH [facility].
--- NOTE | 2019-07-16 19:19 | NUR ---
BLOOD UNIT #1 [id number] OBTAINED FROM BLOOD BANK. WHEN ATTEMPTING TO USE TRANSFUSION BUTTON ON INTERVENTION SCREEN THERE WERE "NO BLOOD PRODUCTS AVAILABLE FOR THIS PT". I PHONED LAB AND WAS INFORMED THAT NO ONE IN LAB "TRAINED IN TAR". I NOTIFIED THE NURSING OSTEOLOGY TEACHER WHO CALLED THE LAB AND WAS INFORMED OF THE SAME THING. PT'S BLOOD BANK BAND/UNIT PC'S VERIFIED WITH KALYN AND TRANSFUSION STARTED AT KVO RATE.
--- NOTE | 2019-07-16 20:45 | NUR ---
DR. MURPHY NOTIFIED OF CONSULT. DR. MURPHY STATES HE WAS ALREADY INFORMED OF CONSULT FROM ER DR. GONZALEZ HOURS AGO. NO FURTHER ORDERS GIVEN AT THIS TIME.
--- NOTE | 2019-07-16 22:30 | NUR ---
DR. PARRA IN TO SEE PATIENT, HOME MEDS RESTARTED AND PATIENT RECEIVED EVENING DOSES OF MEDS AND THEN PATIENT WILL BE NPO AT MIDNIGHT PER DR. PARRA.
--- NOTE | 2019-07-16 22:35 | NUR ---
BLOOD TRANSFUSION COMPLETED. PATIENT TOLERATED WELL, NO REACTION NOTED.
[2019-07-17] VITALS (8 sets, daily range): BP systolic 98–135; BP diastolic 42–74
[2019-07-17 01:27] LABS: BASO % 0.4 % (0.0-1.0); EOS # 0.1 10*3/uL (0.0-0.4); EOS % 1.2 % (1.0-4.0); HEMATOCRIT 25.1 % (37.0-47.0); HEMOGLOBIN 7.2 g/dl (12.0-16.0); LYMPH # 1.6 10*3/uL (1.3-4.4); LYMPH % 15.4 % (27.0-41.0); MEAN CELL VOLUME 86.3 fl (81.0-99.0); MEAN CORPUSCULAR HGB 24.7 pg (27.0-31.0); MEAN CORPUSCULAR HGB CONC 28.7 g/dl (33.0-37.0); MONO # 1.2 10*3/uL (0.1-1.0); MONO % 11.1 % (3.0-9.0); NEUT # 7.6 10*3/uL (2.3-7.9); NEUT % 71.1 % (47.0-73.0); NUCLEATED RED BLOOD CELL 0.3 % (0.0-0.0); PLATELET COUNT AUTOMATED 218 10*3/uL (130-400); RED BLOOD COUNT 2.91 10*6/uL (4.10-5.10); RED CELL DISTRI WIDTH 16.3 % (0-14.5); WHITE BLOOD COUNT 10.6 10*3/uL (4.8-10.8)
--- NOTE | 2019-07-17 01:35 | NUR ---
DR. KC NOTIFIED OF H&H RESULTS. NO FURTHER ORDERS AT THIS TIME. PATIENT CONDITION AND CO-MORBIDITIES REVIEWED. WILL WAIT FOR AM LABS RESULTS TO DETERMINE PLAN OF CARE.
[2019-07-17 05:34] LABS: BASO % 0.4 % (0.0-1.0); EOS # 0.1 10*3/uL (0.0-0.4); EOS % 1.4 % (1.0-4.0); HEMATOCRIT 25.1 % (37.0-47.0); HEMOGLOBIN 7.1 g/dl (12.0-16.0); LYMPH # 1.4 10*3/uL (1.3-4.4); LYMPH % 15.1 % (27.0-41.0); MEAN CELL VOLUME 86.3 fl (81.0-99.0); MEAN CORPUSCULAR HGB 24.4 pg (27.0-31.0); MEAN CORPUSCULAR HGB CONC 28.3 g/dl (33.0-37.0); MEAN PLATELET VOLUME 11.1 fl (9.6-12.3); MONO # 1.1 10*3/uL (0.1-1.0); MONO % 11.8 % (3.0-9.0); NEUT # 6.3 10*3/uL (2.3-7.9); NEUT % 70.5 % (47.0-73.0); NUCLEATED RED BLOOD CELL 0.4 % (0.0-0.0); PLATELET COUNT AUTOMATED 210 10*3/uL (130-400); RED BLOOD COUNT 2.91 10*6/uL (4.10-5.10); RED CELL DISTRI WIDTH 16.3 % (0-14.5)
[2019-07-17 05:45] LABS: ALBUMIN 2.9 gm/dl (3.1-4.5); CREATININE 1.19 mg/dL (0.55-1.02); FREE T4 1.15 ng/dl (0.76-1.46); PHOSPHOROUS 3.3 mg/dL (2.5-4.9); POTASSIUM 4.4 mmol/L (3.5-5.1); TOTAL PROTEIN 6.1 gm/dL (6.4-8.2)
[2019-07-17 05:50] LABS: THYROID STIM HORMONE (HS) 4.52 uIU/ml (0.358-4.75)
--- NOTE | 2019-07-17 06:59 | NUR ---
DR. PARRA NOTIFIED OF H&H RESULTS. NO NEW ORDERS GIVEN AT THIS TIME.
--- NOTE | 2019-07-17 07:28 | NUR ---
Shift chart check completed.
--- NOTE | 2019-07-17 08:00 | NUR ---
PT RESTING QUIETLY ON CART. EASY RESPIRATIONS. NO DISTRESS AT THIS TIME. PT REPORTS SOME ACHY PAIN TO LEFT SHOULDER. REFUSES PAIN MEDICATIONS AT THIS TIME. NPO STATUS CONTINUES AT THIS TIME.
--- NOTE | 2019-07-17 08:06 | NUR ---
24 HR chart check completed.
--- NOTE | 2019-07-17 09:16 | NUR ---
DR MAURICE CONN - DISCUSED HEART RATE - WILL HOLD COREG TODAY
--- NOTE | 2019-07-17 10:03 | NUR ---
RN SPOKE WITH DR MURPHY WHO INDICATED PT TO REMAIN NPO. ENDOSCOPE TO BE COMPLETED. SURGICAL PACKET AND CONSENTS TO BE OBTAINED.
--- NOTE | 2019-07-17 10:53 | NUR ---
DR MURPHY IN ROOM TO DISCUSS PROCEDURE. CONSENTS SIGNED. PT VOICED UNDERSTANDING. PT IV PATENT WITH GOOD BLOOD RETURN. ANESTHESIA IN ROOM TO DISCUSS CONSENT. PT TRANSPORTED FOR PROCEDURE IN STABLE POSITION.
--- NOTE | 2019-07-17 11:32 | NUR ---
PT BACK TO [facility] ROOM 1 FROM SURGICAL UNIT. PT RESTING QUIETLY. NO ACUTE DISTRESS. DROWSINESS NOTED BUT TO BE EXPECTED DURING POST OP PERIOD. PT PLACED BACK ON MONTIOR.
--- NOTE | 2019-07-17 11:38 | NUR ---
PT ASSISTED UP TO BEDSIDE COMMODE TO VOID.
--- NOTE | 2019-07-17 11:48 | NUR ---
PT BACK IN BED AT THIS TIME. STABLE WITH FAMILY AT BEDSIDE.
--- NOTE | 2019-07-17 13:10 | NUR ---
NORCO GIVEN PER ORDER AT 1242PM PT STATES PAIN IS BETTER. PT RESTING ON BED. PILLOW PLACED AT LOW BACK FOR COMFORT. FAMILY AT BEDSIDE.
--- NOTE | 2019-07-17 16:01 | NUR ---
PATINET MED WITH TYLENOL FOR BACK DISCOMFORT - HX: OF BACK ISSUES. PRE PT VERY TIRED TODAY (EXPLAINED ANESTHESIA CAN DO THAT) PATIENT ALSO INSISTED SHAWANDA & SOCKS REMOVED TOOH OT & HURT - REFUSED OFFER OF SCD. EXPLAINED REASON FOR USE & PATIENT CONTINUES TO REFUSE.
--- NOTE | 2019-07-17 19:45 | NUR ---
24 HOUR CHART CHECK COMPLETED
--- NOTE | 2019-07-17 20:20 | NUR ---
PATIENT ASSESSMENT COMPLETED AT THIS TIME WITHOUT INCIDENT. PATIENT A&O X3 AT THIS TIME, SPEECH CLEAR AND APPROPRIATE, DENIES ANY CHEST PAIN/PRESSURE, SHORTNESS OF BREATH, OR ANY DISTRESS. DOES STATE THAT SHE HAS CHRONIC BACK PAIN AND TINGLING IN HER FEET FROM NEUROPATHY. PATIENT ASSISTED TO BEDSIDE COMMODE WITHOUT INCIDENT, PATIENT MOVED BOWELS AND URINATED. PATIENT DENIES ANY DYSURIA BUT URINE HAS A STRONG ODOR. PATIENT ASSISTED TO BED AND POSITIONED FOR COMFORT. MEDICATIONS GIVEN ORALLY WITHOUT INCIDENT, PATIENT REQUESTED MEDICATION FOR SLEEP, VISTARIL GIVEN. CALL LIGHT WITHIN REACH, WILL CONTINUE TO MONITOR.
--- NOTE | 2019-07-17 23:23 | NUR ---
PATIENT MEDICATED WITH TYLENOL AT THIS TIME FOR COMPLAINT OF BILATERAL LOWER LEG PAIN 5/10 AT THIS TIME.
[2019-07-18] VITALS: BP 119/46
--- NOTE | 2019-07-18 00:20 | NUR ---
PATIENT RESTING COMFORTABLY IN BED AT THIS TIME WITH EYES CLOSED. NO SIGNS OR SYMPTOMS OF PAIN NOTED AT THIS TIME, MEDICATION EFFECTIVE AT THIS TIME.
[2019-07-18 04:00] VITALS: BP 120/58
--- NOTE | 2019-07-18 04:00 | NUR ---
PATIENT RESTING IN BED IN A POSITION OF COMFORT WITH EYES CLOSED AT THIS TIME. RESPIRATIONS EASY AND NON-LABORED AT THIS TIME, MONITOR INTACT RHYTHM IS AFIB AT THIS TIME. CALL LIGHT WITHIN REACH, WILL CONTINUE TO MONITOR.
[2019-07-18 06:09] LABS: CREATININE 1.16 mg/dL (0.55-1.02)
[2019-07-18 06:12] LABS: BASO % 0.3 % (0.0-1.0); EOS # 0.2 10*3/uL (0.0-0.4); EOS % 1.8 % (1.0-4.0); HEMATOCRIT 25.1 % (37.0-47.0); HEMOGLOBIN 7.1 g/dl (12.0-16.0); LYMPH # 1.2 10*3/uL (1.3-4.4); LYMPH % 13.3 % (27.0-41.0); MEAN CELL VOLUME 86.9 fl (81.0-99.0); MEAN CORPUSCULAR HGB 24.6 pg (27.0-31.0); MEAN CORPUSCULAR HGB CONC 28.3 g/dl (33.0-37.0); MEAN PLATELET VOLUME 11.6 fl (9.6-12.3); MONO % 10.8 % (3.0-9.0); NEUT # 6.7 10*3/uL (2.3-7.9); PLATELET COUNT AUTOMATED 217 10*3/uL (130-400); RED BLOOD COUNT 2.89 10*6/uL (4.10-5.10); RED CELL DISTRI WIDTH 16.7 % (0-14.5); WHITE BLOOD COUNT 9.2 10*3/uL (4.8-10.8)
[2019-07-18 08:00] VITALS: BP 110/60
--- NOTE | 2019-07-18 09:25 | NUR ---
DR RICHARDS ROUNDED - PT SEEN & ORDERS RECEIVED
--- NOTE | 2019-07-18 11:00 | NUR ---
PHYSICAL THERAPY PT EVAL COMPLETED TODAY; FULL EVAL TO FOLLOW. RECOMMEND PT WHILE HERE TO ADDRESS DECREASED STRENGTH AND FUNCTIONAL MOBILITY. PT EVAL IS MODERATE COMPLEXITY:[id number]. D/C REC: RETURN TO [facility] [place] WITH SERVICES AND FAMILY SUPPORT. THANK YOU FOR REFERRAL HEATHER DAVILA PT
[2019-07-18 12:00] VITALS: BP 118/49
--- NOTE | 2019-07-18 13:32 | NUR ---
MOVED TO 426 WITH ALL BELONGINGS
[2019-07-18 16:00] VITALS: BP 121/48
[2019-07-18 20:00] VITALS: BP 111/45
--- NOTE | 2019-07-18 20:55 | NUR ---
ASSISTED PATIENT UP TO BATHROOM. GAIT SLOW & STEADY. PT. VOICES NO C/O AT THIS TIME; NO DISTRESS NOTED. WILL CONTINUE TO MONITOR.
--- NOTE | 2019-07-18 22:24 | NUR ---
MEDICATED WITH VISTARIL FOR C/O ANXIETY/INSOMNIA.
[2019-07-19] VITALS: BP 106/48
--- NOTE | 2019-07-19 01:54 | NUR ---
MEDICATED WITH MS FOR C/O BILATERAL LEG PAIN.
--- NOTE | 2019-07-19 04:00 | NUR ---
RESTING IN BED WITH EYES CLOSED; PAIN MEDICATION GIVEN EARLIER APPARENTLY EFFECTIVE. CALL LIGHT WITHIN REACH; BED ALARM ON.
--- NOTE | 2019-07-19 06:00 | NUR ---
AROUSES EASILY FOR PO MEDICATION. CALL LIGHT WITHIN REACH.
[2019-07-19 06:22] LABS: BASO % 0.4 % (0.0-1.0); EOS # 0.2 10*3/uL (0.0-0.4); EOS % 1.8 % (1.0-4.0); HEMATOCRIT 25.9 % (37.0-47.0); HEMOGLOBIN 7.2 g/dl (12.0-16.0); LYMPH # 1.2 10*3/uL (1.3-4.4); LYMPH % 14.5 % (27.0-41.0); MEAN CELL VOLUME 85.5 fl (81.0-99.0); MEAN CORPUSCULAR HGB 23.8 pg (27.0-31.0); MEAN CORPUSCULAR HGB CONC 27.8 g/dl (33.0-37.0); MEAN PLATELET VOLUME 11.3 fl (9.6-12.3); MONO % 12.2 % (3.0-9.0); NEUT % 70.2 % (47.0-73.0); NUCLEATED RED BLOOD CELL 0.2 % (0.0-0.0); PLATELET COUNT AUTOMATED 238 10*3/uL (130-400); RED BLOOD COUNT 3.03 10*6/uL (4.10-5.10); RED CELL DISTRI WIDTH 16.7 % (0-14.5); WHITE BLOOD COUNT 8.5 10*3/uL (4.8-10.8)
[2019-07-19 06:30] LABS: CREATININE 1.12 mg/dL (0.55-1.02); POTASSIUM 3.8 mmol/L (3.5-5.1)
[2019-07-19 07:50] VITALS: BP 112/64
--- NOTE | 2019-07-19 07:50 | NUR ---
MEDICATED WITH PRN PO NORCO FOR C/O BACK AND BILATERAL LEGS NEUROPATHY PAIN.
--- NOTE | 2019-07-19 09:00 | NUR ---
Steam Crane Operator in to talk to patient. Patient states lives at [facility] independent living with alone. There are no steps in the home. Physician: resident clinic Pharmacy: [facility] health services: none Patient's level of ADLs: INDEPENDENT Patient has working utilities: all working DME: walker, cane Follow-up physician's appointment after d/c: will be made by hospitalist nurse director upon discharge Does patient want to access PORTAL?: no Discharge plan discussed with patient, she lives at [place] independent living alone, she has a walker and cane to use if needed, she states she drives and visits her friends in the halfway frequently, discussed with her a discharge plan including a short term nursing home for rehab prior to returning home, she declined, also discussed [facility] and educated her on the services they provide, she also declined this, case management will visit patient at a later time and continue to offer choices. EMMANUEL BOWLES
--- NOTE | 2019-07-19 09:12 | NUR ---
VP ACCOUNT DIRECTOR reached out to [employer]. [place] prefers to use [employer] [facility]. VP ACCOUNT DIRECTOR will notify patients Chargeback Specialist. -VANESSA Sykes
[2019-07-19] MEDS ORDERED: FEROSUL325 MG PO (09:36)
[2019-07-19] MEDS ORDERED: CARVEDILOL3.125 MG PO (09:37)
[2019-07-19] MEDS ORDERED: COLACE100 MG PO (09:37)
--- NOTE | 2019-07-19 10:16 | NUR ---
PHYSICAL THERAPY Patient was eating breakfast upon this CYBER DEFENSE FORENSICS ANALYST approaching patient this AM for treatment at 8:35 AM. Will check back later with patient. NAYANA FRAIS CYBER DEFENSE FORENSICS ANALYST
--- NOTE | 2019-07-19 10:36 | NUR ---
Patient is independent and lives at [facility]. Contacted [facility] who stated they do not require any kind of clinical updates. She can return to her condo when medically stable for discharge.
--- NOTE | 2019-07-19 11:03 | NUR ---
Occupational therapy orders received and OT evaluation and POC completed in full on floor four. Patient precautions include fall risk, weakness, ww use, bed/chair alarm, and SOB. Per OT evjose, OT recommends patient return to her independent living with HH SN, OT, and PT. Patient complexity is low, [id number]. Patient would benefit from continued OT treatment to maximize safety and independence with ADLs, mobility, and transfers. Thank you for the referral. Shagufta Mak, OTR/L
--- NOTE | 2019-07-19 11:28 | NUR ---
PHYSICAL THERAPY TREATMENT TIME: 11:10 AM - 11:30 AM Patient presented to therapy in supine with head of bed elevated and bed alarm activated. Patient gives informed consent for treatment. Patient was identified by name and on wristband. Patient's vitals were taken and recorded as B/P 113/50, PULSE= 64, O2= 92% prior to doing therapy. Patient performed supine to sitting at EOB transfer SBA. Patient sat on EOB with SBA. Patient sit to stand from EOB with CGA X 1. Patient performed gait with Wh Walker and CGA X 2 for 52' x 1 with no LOB and mild SOB. Patient required verbal cues for keeping Wh Walker slightly ahead of patient in order to maintain proper center of gravity and for safety. Patient transferred on and off commode with CGA X 1. Patient transferred to bedside chair with CGA X 2 with verbal cues for puitting hands back on armrests of chair. Patient was left in bedside chair with call light within reach, chair alarm tested and attached to patient and LEs elevated. Patient was 1:1 with this SOCIAL SERVICES COUNSELOR for 20 minutes total. NAYANA FRIAS SOCIAL SERVICES COUNSELOR
[2019-07-19 12:00] VITALS: BP 113/50
--- NOTE | 2019-07-19 12:16 | NUR ---
PATIENT ASSESSED FOR HOME OXYGEN USE. DURING REST ON ROOM AIR PATIENT'S SPO2 WAS 94% HEART RATE 76 BLOOD PRESSURE:112/64, AND RESPIRATORY RATE 19. DURING AMBULATION THE PATIENT 'S SPO2 NEVER WENT BELOW 90% , BUT THE HEART RATE WAS 95BPM AND HER RESPIRATORY RATE WAS 24-26 BPM. THE PATIENT COMPLAINED THAT SHE WAS TIRED AND SEEMED TO BE DECONDITIONED. CARRIED THE TEST LONG I COULD AND THAN TRANSPORT HER BACK TO HER BY WHEEL CHAIR. PATIENT WAS BACK IN BED WITH CALL LIGHT IN HAND.
--- NOTE | 2019-07-19 14:33 | NUR ---
Pt was seen in OT x 30 minutes beginning with sit to stand from bedside chair with CGA. Using a w/walker, performed fxl mobility to bathroom with CGA. Transferred to [facility] with CGA. Pt was able to manage toilet hygiene. Pt performed bed mobility sit to supine with Min A to bring feet over bed edge. Continue with POC. Call light within reach. Mayra STILES
--- NOTE | 2019-07-19 15:41 | NUR ---
case management received a message that patient wanted home health when she is discharged, contacted [facility], spoke to Josh, referral and patient's information faxed to Josh
[2019-07-19 16:00] VITALS: BP 123/44
--- NOTE | 2019-07-19 18:27 | NUR ---
Discharge instructions reviewed with patient/family. Patient receptive and verbalizes understanding. Follow-up care arranged. Written instructions given to patient/family. HEART MONITOR ACCOUNTED FOR AND IV TAKEN OUT. JAZIEL GARZA
--- NOTE | 2019-07-20 07:50 | NUR ---
OCCUPATIONAL THERAPY CO-SIGN I approve of the Occupational Therapy notes written above. MEI ZAMAN OTR/Gracy
--- NOTE | 2019-07-20 14:45 | NUR ---
PHYSICAL THERAPY CO-SIGN I approve of the Physical Therapy notes written above Mary Krishnamurthy PT
== END 2019-07-19 18:27 | disposition home health service (06) | DRG 377 ==
LOC: ED 14:28 → ICCU 17:15 → 4E 17:15 → ICCU 07-17 14:31 → 4E 07-18 13:35
PROVIDERS: Emergency Medicine; Family Medicine; Hospitalist; Internal Medicine; ADMIT Internal Medicine
PROC: 30233N1 Transfusion of Nonautologous Red Blood Cells into Peripheral Vein, Percutaneous Approach (ICD-10-PCS; principal; 2019-07-16)
PROC: 0DJ08ZZ Inspection of Upper Intestinal Tract, Via Natural or Artificial Opening Endoscopic (ICD-10-PCS; 2019-07-17)
DX: K29.71 Gastritis, unspecified, with bleeding (principal); N17.0 Acute kidney failure with tubular necrosis; D62 Acute posthemorrhagic anemia; E44.0 Moderate protein-calorie malnutrition; I48.20 Chronic atrial fibrillation, unspecified; Z68.41 Body mass index [BMI] 40.0-44.9, adult; G62.9 Polyneuropathy, unspecified; K21.9 Gastro-esophageal reflux disease without esophagitis; K44.9 Diaphragmatic hernia without obstruction or gangrene; E03.9 Hypothyroidism, unspecified; E66.01 Morbid (severe) obesity due to excess calories; I12.9 Hypertensive chronic kidney disease with stage 1 through stage 4 chronic kidney disease, or unspecified chronic kidney disease; N18.3 Chronic kidney disease, stage 3 (moderate); R73.9 Hyperglycemia, unspecified; D72.89 Other specified disorders of white blood cells; Z96.659 Presence of unspecified artificial knee joint; Z79.01 Long term (current) use of anticoagulants; Z79.899 Other long term (current) drug therapy; Z90.49 Acquired absence of other specified parts of digestive tract; Z90.710 Acquired absence of both cervix and uterus; Z98.49 Cataract extraction status, unspecified eye; Z83.3 Family history of diabetes mellitus; Z83.6 Family history of other diseases of the respiratory system; Z82.49 Family history of ischemic heart disease and other diseases of the circulatory system

== ENCOUNTER → 2019-07-27 | Outpatient (CLI) | payer MEDICARE, OTHER ==
[~2019-07-27] MED LIST changes: +CARVEDILOL3.125 MG PO; +FEROSUL325 MG PO; +HYDROXYZINE HCL25 MG PO; +TOPCARE OMEPRAZ20 MG PO
[2019-07-27 15:53] LABS: BASO % 0.4 % (0.0-1.0); EOS # 0.2 10*3/uL (0.0-0.4); EOS % 2.5 % (1.0-4.0); HEMATOCRIT 34.3 % (37.0-47.0); HEMOGLOBIN 9.4 g/dl (12.0-16.0); LYMPH # 1.6 10*3/uL (1.3-4.4); LYMPH % 17.2 % (27.0-41.0); MEAN CELL VOLUME 90.5 fl (81.0-99.0); MEAN CORPUSCULAR HGB 24.8 pg (27.0-31.0); MEAN CORPUSCULAR HGB CONC 27.4 g/dl (33.0-37.0); MEAN PLATELET VOLUME 10.2 fl (9.6-12.3); MONO # 1.4 10*3/uL (0.1-1.0); MONO % 15.3 % (3.0-9.0); NEUT # 5.9 10*3/uL (2.3-7.9); NEUT % 62.9 % (47.0-73.0); NUCLEATED RED BLOOD CELL 0.2 % (0.0-0.0); PLATELET COUNT AUTOMATED 338 10*3/uL (130-400); RED BLOOD COUNT 3.79 10*6/uL (4.10-5.10); RED CELL DISTRI WIDTH 22.4 % (0-14.5); WHITE BLOOD COUNT 9.4 10*3/uL (4.8-10.8)
== END | disposition home or self-care (01) ==
LOC: RESCLI 01:06
PROVIDERS: Student in an Organized Health Care Education/Training Program
DX: E55.9 Vitamin D deficiency, unspecified (principal); K21.9 Gastro-esophageal reflux disease without esophagitis; G62.9 Polyneuropathy, unspecified; I10 Essential (primary) hypertension; I48.21 Permanent atrial fibrillation; E03.9 Hypothyroidism, unspecified; F41.9 Anxiety disorder, unspecified; D50.9 Iron deficiency anemia, unspecified; Z79.899 Other long term (current) drug therapy; Z90.710 Acquired absence of both cervix and uterus

== ENCOUNTER → 2019-08-20 | Outpatient (CLI) | payer MEDICARE, OTHER ==
[2019-08-20 15:29] LABS: BILIRUBIN 1+ (NEGATIVE); BLOOD 3+ (NEGATIVE); CLARITY CLOUDY (CLEAR); COLOR YELLOW (YELLOW); GLUCOSE NEGATIVE (NEGATIVE); KETONE 1+ (NEGATIVE); SPECIFIC GRAVITY 1.025 (1.005-1.030)
[2019-08-20 15:30] LABS: BACTERIA 1+; LEUKO ESTERASE 3+ (NEGATIVE); NITRITE NEGATIVE (NEGATIVE); RBC TNTC rbc/hpf (0-2); UROBILINOGEN 0.2 E.U./dl (0.2-1.0); WBC 21-30 wbc/hpf (0-5)
== END | disposition home or self-care (01) ==
LOC: RESCLI 14:22
PROVIDERS: Family Medicine
DX: N39.0 Urinary tract infection, site not specified (principal); I12.9 Hypertensive chronic kidney disease with stage 1 through stage 4 chronic kidney disease, or unspecified chronic kidney disease; N18.3 Chronic kidney disease, stage 3 (moderate); E03.9 Hypothyroidism, unspecified; I48.91 Unspecified atrial fibrillation; Z79.899 Other long term (current) drug therapy

== ENCOUNTER → 2020-01-25 | Outpatient (CLI) | payer MEDICARE, OTHER ==
[2020-01-25 16:44] LABS: BASO % 0.5 % (0.0-1.0); EOS # 0.2 10*3/uL (0.0-0.4); EOS % 2.1 % (1.0-4.0); HEMATOCRIT 39.5 % (37.0-47.0); LYMPH # 1.2 10*3/uL (1.3-4.4); LYMPH % 13.9 % (27.0-41.0); MEAN CELL VOLUME 99.7 fl (81.0-99.0); MEAN CORPUSCULAR HGB 30.6 pg (27.0-31.0); MEAN CORPUSCULAR HGB CONC 30.6 g/dl (33.0-37.0); MONO # 0.8 10*3/uL (0.1-1.0); MONO % 9.1 % (3.0-9.0); NEUT # 6.4 10*3/uL (2.3-7.9); NEUT % 73.8 % (47.0-73.0); PLATELET COUNT AUTOMATED 260 10*3/uL (130-400); RED BLOOD COUNT 3.96 10*6/uL (4.10-5.10); RED CELL DISTRI WIDTH 12.6 % (0-14.5); WHITE BLOOD COUNT 8.6 10*3/uL (4.8-10.8)
[2020-01-25 16:54] LABS: BILIRUBIN 1+ (NEGATIVE); BLOOD 3+ (NEGATIVE); CLARITY CLOUDY (CLEAR); COLOR YELLOW (YELLOW); GLUCOSE NEGATIVE (NEGATIVE); KETONE NEGATIVE (NEGATIVE); LEUKO ESTERASE 2+ (NEGATIVE); NITRITE NEGATIVE (NEGATIVE); UROBILINOGEN 0.2 E.U./dl (0.2-1.0)
[2020-01-25 17:04] LABS: RBC TNTC rbc/hpf (0-2); WBC TNTC wbc/hpf (0-5)
[2020-01-25 17:05] LABS: BACTERIA 2+; EPITHELIAL CELLS 21-30
[2020-01-25 17:14] LABS: ALBUMIN 3.3 gm/dl (3.1-4.5); CREATININE 1.06 mg/dL (0.55-1.02); POTASSIUM 4.5 mmol/L (3.5-5.1); TOTAL PROTEIN 7.4 gm/dL (6.4-8.2)
[2020-01-25 17:30] LABS: FERRITIN 25.1 ng/mL (10.0-291.0); VITAMIN D, 25-HYDROXY 31.3 ng/mL (30-100)
== END | disposition home or self-care (01) ==
LOC: RESCLI 00:51
PROVIDERS: Internal Medicine
DX: E55.9 Vitamin D deficiency, unspecified (principal); I12.9 Hypertensive chronic kidney disease with stage 1 through stage 4 chronic kidney disease, or unspecified chronic kidney disease; N18.3 Chronic kidney disease, stage 3 (moderate); M19.90 Unspecified osteoarthritis, unspecified site; D50.9 Iron deficiency anemia, unspecified; K21.9 Gastro-esophageal reflux disease without esophagitis; I48.21 Permanent atrial fibrillation; F41.9 Anxiety disorder, unspecified; E03.9 Hypothyroidism, unspecified; G62.9 Polyneuropathy, unspecified; R35.0 Frequency of micturition; Z79.899 Other long term (current) drug therapy; Z90.710 Acquired absence of both cervix and uterus; Z90.49 Acquired absence of other specified parts of digestive tract; Z98.890 Other specified postprocedural states

== ENCOUNTER → 2020-04-06 | Outpatient (CLI) | payer MEDICARE, OTHER | END | disposition home or self-care (01) | LOC: RESCLI 00:44 | PROVIDERS: ATTEND Internal Medicine | DX: D50.9 Iron deficiency anemia, unspecified (principal); K21.9 Gastro-esophageal reflux disease without esophagitis; I48.21 Permanent atrial fibrillation; F41.9 Anxiety disorder, unspecified; E03.9 Hypothyroidism, unspecified; E55.9 Vitamin D deficiency, unspecified; I10 Essential (primary) hypertension; G62.9 Polyneuropathy, unspecified; M19.90 Unspecified osteoarthritis, unspecified site; Z79.899 Other long term (current) drug therapy; Z98.890 Other specified postprocedural states; Z90.710 Acquired absence of both cervix and uterus ==

== ENCOUNTER → 2020-08-04 | Outpatient (CLI) | payer MEDICARE, OTHER ==
[2020-08-04 14:55] LABS: BASO % 0.4 % (0.0-1.0); EOS # 0.2 10*3/uL (0.0-0.4); EOS % 2.1 % (1.0-4.0); HEMATOCRIT 45.5 % (37.0-47.0); LYMPH # 1.5 10*3/uL (1.3-4.4); LYMPH % 14.6 % (27.0-41.0); MEAN CELL VOLUME 95.6 fl (81.0-99.0); MEAN CORPUSCULAR HGB 29.2 pg (27.0-31.0); MEAN CORPUSCULAR HGB CONC 30.5 g/dl (33.0-37.0); MONO # 0.9 10*3/uL (0.1-1.0); NEUT # 7.4 10*3/uL (2.3-7.9); NEUT % 73.4 % (47.0-73.0); PLATELET COUNT AUTOMATED 228 10*3/uL (130-400); RED BLOOD COUNT 4.76 10*6/uL (4.10-5.10); RED CELL DISTRI WIDTH 13.2 % (0-14.5); WHITE BLOOD COUNT 10.1 10*3/uL (4.8-10.8)
[2020-08-04 14:58] LABS: BILIRUBIN Negative (Negative); BLOOD 2+ (Negative); CLARITY Cloudy (Clear); COLOR Yellow (Yellow); GLUCOSE Negative (Negative); KETONE Negative (Negative); LEUKO ESTERASE 3+ (Negative); NITRITE Negative (Negative); SPECIFIC GRAVITY 1.015 (1.001-1.030)
[2020-08-04 15:31] LABS: ALBUMIN 3.5 gm/dl (3.1-4.5); CREATININE 1.05 mg/dL (0.55-1.02); POTASSIUM 3.7 mmol/L (3.5-5.1)
[2020-08-04 15:32] LABS: BACTERIA 2+; WBC 51-100 wbc/hpf (0-5)
[2020-08-04 15:42] LABS: TOTAL PROTEIN 7.6 gm/dL (6.4-8.2)
== END | disposition home or self-care (01) ==
LOC: LAB 14:03
PROVIDERS: Internal Medicine; ATTEND Family Medicine
DX: R31.9 Hematuria, unspecified (principal)

== ENCOUNTER → 2020-09-28 | Outpatient (CLI) | payer MEDICARE, OTHER ==
[2020-09-28 11:40] LABS: TROPONIN I < 0.015 ng/ml (<0.045)
[2020-09-28 13:51] LABS: FREE T4 1.08 ng/dl (0.76-1.46)
== END | disposition home or self-care (01) ==
LOC: RESCLI 00:48
PROVIDERS: Internal Medicine; ATTEND Internal Medicine Nephrology
DX: R07.89 Other chest pain (principal); I48.21 Permanent atrial fibrillation; D50.9 Iron deficiency anemia, unspecified; I12.9 Hypertensive chronic kidney disease with stage 1 through stage 4 chronic kidney disease, or unspecified chronic kidney disease; K21.9 Gastro-esophageal reflux disease without esophagitis; F41.9 Anxiety disorder, unspecified; E03.9 Hypothyroidism, unspecified; E55.9 Vitamin D deficiency, unspecified; N18.30 Chronic kidney disease, stage 3 unspecified; G62.9 Polyneuropathy, unspecified; E66.01 Morbid (severe) obesity due to excess calories; B37.2 Candidiasis of skin and nail; Z79.899 Other long term (current) drug therapy; Z87.81 Personal history of (healed) traumatic fracture; Z90.710 Acquired absence of both cervix and uterus; Z98.890 Other specified postprocedural states; Z90.49 Acquired absence of other specified parts of digestive tract; Z83.3 Family history of diabetes mellitus; Z82.49 Family history of ischemic heart disease and other diseases of the circulatory system

== ENCOUNTER → 2021-01-08 | Outpatient (CLI) | payer MEDICARE, OTHER | END | disposition home or self-care (01) | LOC: RESCLI 05:13 | PROVIDERS: ATTEND Internal Medicine Nephrology | DX: M79.89 Other specified soft tissue disorders (principal); K21.9 Gastro-esophageal reflux disease without esophagitis; I48.21 Permanent atrial fibrillation; F41.9 Anxiety disorder, unspecified; E03.9 Hypothyroidism, unspecified; E55.9 Vitamin D deficiency, unspecified; D50.9 Iron deficiency anemia, unspecified; B37.2 Candidiasis of skin and nail; I10 Essential (primary) hypertension; G62.9 Polyneuropathy, unspecified; Z90.710 Acquired absence of both cervix and uterus; Z90.49 Acquired absence of other specified parts of digestive tract; Z98.890 Other specified postprocedural states; Z79.899 Other long term (current) drug therapy ==

== ENCOUNTER → 2021-02-13 | Outpatient (CLI) | payer MEDICARE, OTHER | END | disposition home or self-care (01) | LOC: RAD/SH 09:55 | PROVIDERS: ATTEND Emergency Medicine | DX: R13.10 Dysphagia, unspecified (principal) ==

== ENCOUNTER → 2021-02-20 | Outpatient (CLI) | payer MEDICARE, OTHER ==
[2021-02-20 16:51] LABS: BUN 19 mg/dl (7-24); CHLORIDE 108 mmol/L (98-107); CREATININE 1.01 mg/dL (0.55-1.02); POTASSIUM 4.2 mmol/L (3.5-5.1); SODIUM 142 mmol/L (136-145)
== END | disposition home or self-care (01) ==
LOC: LAB 15:54
PROVIDERS: ATTEND Internal Medicine Cardiovascular Disease
DX: R60.9 Edema, unspecified (principal)

== ENCOUNTER → 2021-03-20 | Outpatient (CLI) | payer MEDICARE, OTHER | END | disposition home or self-care (01) | LOC: RAD 16:27 | PROVIDERS: ATTEND Internal Medicine Cardiovascular Disease | DX: J84.89 Other specified interstitial pulmonary diseases (principal); I51.7 Cardiomegaly ==

== ENCOUNTER → 2021-05-11 | Outpatient (CLI) | payer MEDICARE, OTHER ==
[2021-05-11 13:37] LABS: BILIRUBIN Negative (Negative); BLOOD 1+ (Negative); CLARITY Turbid (Clear); COLOR Yellow (Yellow); GLUCOSE Negative (Negative); KETONE Trace (Negative); LEUKO ESTERASE 3+ (Negative); NITRITE Negative (Negative)
[2021-05-11 13:47] LABS: RBC 0-2 rbc/hpf (0-2); WBC TNTC wbc/hpf (0-5)
[2021-05-11 13:48] LABS: BACTERIA 2+; MUCOUS TRACE
== END | disposition home or self-care (01) ==
LOC: LAB 12:51
PROVIDERS: Internal Medicine; ATTEND Internal Medicine
DX: R30.0 Dysuria (principal)

== ENCOUNTER → 2021-06-01 | Outpatient (CLI) | payer MEDICARE, OTHER ==
[2021-06-01 13:07] LABS: BILIRUBIN Negative (Negative); BLOOD 1+ (Negative); CLARITY Cloudy (Clear); COLOR Yellow (Yellow); GLUCOSE Negative (Negative); KETONE Negative (Negative); LEUKO ESTERASE 3+ (Negative); NITRITE Negative (Negative); UROBILINOGEN 0.2 E.U./dl (0.0-1.0)
[2021-06-01 13:17] LABS: WBC TNTC wbc/hpf (0-5)
== END | disposition home or self-care (01) ==
LOC: LAB 12:18
PROVIDERS: Internal Medicine; ATTEND Internal Medicine
DX: N18.30 Chronic kidney disease, stage 3 unspecified (principal); Z79.899 Other long term (current) drug therapy

== ENCOUNTER → 2021-06-25 | Outpatient (CLI) | payer MEDICARE, OTHER ==
[2021-06-25 15:02] LABS: BASO % 0.5 % (0.0-1.0); EOS # 0.2 10*3/uL (0.0-0.4); EOS % 2.4 % (1.0-4.0); HEMATOCRIT 42.3 % (37.0-47.0); LYMPH # 1.5 10*3/uL (1.3-4.4); LYMPH % 18.6 % (27.0-41.0); MEAN CORPUSCULAR HGB 30.7 pg (27.0-31.0); MEAN CORPUSCULAR HGB CONC 30.7 g/dl (33.0-37.0); MEAN PLATELET VOLUME 11.1 fl (9.6-12.3); MONO # 0.8 10*3/uL (0.1-1.0); NEUT # 5.5 10*3/uL (2.3-7.9); PLATELET COUNT AUTOMATED 215 10*3/uL (130-400); RED BLOOD COUNT 4.23 10*6/uL (4.10-5.10); RED CELL DISTRI WIDTH 13.1 % (0-14.5); WHITE BLOOD COUNT 8.1 10*3/uL (4.8-10.8)
[2021-06-25 15:20] LABS: ALBUMIN 3.4 gm/dl (3.1-4.5); POTASSIUM 4.7 mmol/L (3.5-5.1)
[2021-06-25 15:40] LABS: CREATININE 1.71 mg/dL (0.55-1.02); TOTAL PROTEIN 7.7 gm/dL (6.4-8.2)
== END | disposition home or self-care (01) ==
LOC: RESCLI 00:51
PROVIDERS: Internal Medicine; ATTEND Internal Medicine Nephrology
DX: E55.9 Vitamin D deficiency, unspecified (principal); D50.9 Iron deficiency anemia, unspecified; B37.2 Candidiasis of skin and nail; I48.21 Permanent atrial fibrillation; I13.0 Hypertensive heart and chronic kidney disease with heart failure and stage 1 through stage 4 chronic kidney disease, or unspecified chronic kidney disease; I50.9 Heart failure, unspecified; N18.30 Chronic kidney disease, stage 3 unspecified; E03.9 Hypothyroidism, unspecified; G62.9 Polyneuropathy, unspecified; F41.9 Anxiety disorder, unspecified; K21.9 Gastro-esophageal reflux disease without esophagitis; Z90.710 Acquired absence of both cervix and uterus; Z90.49 Acquired absence of other specified parts of digestive tract; Z98.890 Other specified postprocedural states; Z79.899 Other long term (current) drug therapy

== ENCOUNTER → 2021-09-19 | Outpatient (CLI) | payer MEDICARE, OTHER ==
[2021-09-19 15:08] LABS: BASO % 0.2 % (0.0-1.0); EOS # 0.2 10*3/uL (0.0-0.4); EOS % 1.8 % (1.0-4.0); HEMATOCRIT 41.5 % (37.0-47.0); LYMPH # 1.1 10*3/uL (1.3-4.4); LYMPH % 12.5 % (27.0-41.0); MEAN CELL VOLUME 98.3 fl (81.0-99.0); MEAN CORPUSCULAR HGB 30.3 pg (27.0-31.0); MEAN CORPUSCULAR HGB CONC 30.8 g/dl (33.0-37.0); MEAN PLATELET VOLUME 11.4 fl (9.6-12.3); MONO # 0.9 10*3/uL (0.1-1.0); MONO % 9.9 % (3.0-9.0); NEUT # 6.4 10*3/uL (2.3-7.9); PLATELET COUNT AUTOMATED 217 10*3/uL (130-400); RED BLOOD COUNT 4.22 10*6/uL (4.10-5.10); RED CELL DISTRI WIDTH 12.7 % (0-14.5); WHITE BLOOD COUNT 8.6 10*3/uL (4.8-10.8)
[2021-09-19 15:19] LABS: CREATININE 1.73 mg/dL (0.55-1.02); POTASSIUM 3.8 mmol/L (3.5-5.1)
== END | disposition home or self-care (01) ==
LOC: RESCLI 00:31
PROVIDERS: Hospitalist; ATTEND Internal Medicine Nephrology
DX: E55.9 Vitamin D deficiency, unspecified (principal); I13.0 Hypertensive heart and chronic kidney disease with heart failure and stage 1 through stage 4 chronic kidney disease, or unspecified chronic kidney disease; N18.30 Chronic kidney disease, stage 3 unspecified; E03.9 Hypothyroidism, unspecified; D50.9 Iron deficiency anemia, unspecified; B37.2 Candidiasis of skin and nail; I48.21 Permanent atrial fibrillation; G62.9 Polyneuropathy, unspecified; F41.9 Anxiety disorder, unspecified; K21.9 Gastro-esophageal reflux disease without esophagitis; I50.9 Heart failure, unspecified; Z79.899 Other long term (current) drug therapy

== ENCOUNTER → 2021-10-02 | Outpatient (CLI) | payer MEDICARE, OTHER ==
[2021-10-02 11:49] LABS: CREATININE 1.62 mg/dL (0.55-1.02); POTASSIUM 3.9 mmol/L (3.5-5.1)
== END | disposition home or self-care (01) ==
LOC: LAB 11:03
PROVIDERS: ATTEND Hospitalist
DX: N18.30 Chronic kidney disease, stage 3 unspecified (principal)

== ENCOUNTER → 2021-10-04 | Outpatient (CLI) | payer MEDICARE, OTHER ==
[2021-10-04 10:32] LABS: BILIRUBIN Negative (Negative); BLOOD 3+ (Negative); CLARITY Turbid (Clear); COLOR Yellow (Yellow); GLUCOSE Negative (Negative); KETONE Trace (Negative); LEUKO ESTERASE 3+ (Negative); NITRITE Negative (Negative)
[2021-10-04 10:45] LABS: WBC TNTC wbc/hpf (0-5)
[2021-10-05 11:07] LABS: CREATININE,URINE 143.4 mg/dL (Not Estab.)
== END | disposition home or self-care (01) ==
LOC: LAB 10:00
PROVIDERS: Hospitalist; ATTEND Internal Medicine
DX: N18.9 Chronic kidney disease, unspecified (principal); N17.9 Acute kidney failure, unspecified; Z79.899 Other long term (current) drug therapy

== ENCOUNTER → 2021-10-10 | Outpatient (CLI) | payer MEDICARE, OTHER | END | disposition home or self-care (01) | LOC: US 13:30 | PROVIDERS: ATTEND Internal Medicine Nephrology | DX: N28.1 Cyst of kidney, acquired (principal); N32.89 Other specified disorders of bladder; N17.9 Acute kidney failure, unspecified; N18.9 Chronic kidney disease, unspecified ==

== ENCOUNTER → 2021-11-20 | Outpatient (CLI) | payer MEDICARE, OTHER | END | disposition home or self-care (01) | LOC: RESCLI 13:05 | PROVIDERS: ATTEND Internal Medicine | DX: N20.0 Calculus of kidney (principal); D50.9 Iron deficiency anemia, unspecified; E55.9 Vitamin D deficiency, unspecified; B37.2 Candidiasis of skin and nail; E03.9 Hypothyroidism, unspecified; I48.21 Permanent atrial fibrillation; G62.9 Polyneuropathy, unspecified; F41.9 Anxiety disorder, unspecified; K21.9 Gastro-esophageal reflux disease without esophagitis; I50.9 Heart failure, unspecified; I11.0 Hypertensive heart disease with heart failure; Z79.899 Other long term (current) drug therapy ==

== ENCOUNTER → 2021-12-17 | Outpatient (CLI) | payer MEDICARE, OTHER | END | disposition home or self-care (01) | LOC: RESCLI 01:23 | PROVIDERS: ATTEND Internal Medicine Nephrology | DX: N89.8 Other specified noninflammatory disorders of vagina (principal); N20.0 Calculus of kidney; D50.9 Iron deficiency anemia, unspecified; E55.9 Vitamin D deficiency, unspecified; B37.2 Candidiasis of skin and nail; E03.9 Hypothyroidism, unspecified; I48.21 Permanent atrial fibrillation; G62.9 Polyneuropathy, unspecified; F41.9 Anxiety disorder, unspecified; K21.9 Gastro-esophageal reflux disease without esophagitis; I50.9 Heart failure, unspecified; I13.0 Hypertensive heart and chronic kidney disease with heart failure and stage 1 through stage 4 chronic kidney disease, or unspecified chronic kidney disease; Z79.899 Other long term (current) drug therapy; N18.30 Chronic kidney disease, stage 3 unspecified ==

== ENCOUNTER → 2022-01-11 | Outpatient (CLI) | payer MEDICARE, OTHER | END | disposition home or self-care (01) | LOC: RESCLI 15:37 | PROVIDERS: ATTEND Student in an Organized Health Care Education/Training Program | DX: N20.0 Calculus of kidney (principal); D50.9 Iron deficiency anemia, unspecified; E55.9 Vitamin D deficiency, unspecified; B37.2 Candidiasis of skin and nail; E03.9 Hypothyroidism, unspecified; I48.21 Permanent atrial fibrillation; G62.9 Polyneuropathy, unspecified; I11.0 Hypertensive heart disease with heart failure; K21.9 Gastro-esophageal reflux disease without esophagitis; I50.9 Heart failure, unspecified; N89.8 Other specified noninflammatory disorders of vagina; Z79.899 Other long term (current) drug therapy ==